=== PATIENT | male | born 1940 | race Caucasian/White ===

== ENCOUNTER → 2017-05-31 10:49 | Outpatient (CLI) | payer MEDICARE, OTHER, SELFPAY ==
--- NOTE | 2017-05-31 10:51 | ECHOD_ITS ---
Reason For Study: HTN Procedure This was a 2D Doppler, Color Flow transthoracic echocardiogram. Exam performed in department. Left Ventricle Normal LV size. Left ventricular systolic function is normal. The estimated ejection fraction is 55 %. No evidence for diastolic dysfunction. No regional wall motion abnormalities noted. Right Ventricle Normal RV size. Normal systolic function. Atria Normal left atrium. Normal right atrium. Mitral Valve Normal mitral valve. Tricuspid Valve Normal tricuspid valve. Mild (1+) tricuspid valve insufficiency. Pulmonary artery systolic pressure is 29 mmHg. Aortic Valve Trisinus/trileaflet aortic valve. Mild (1+) eccentric aortic valve insufficiency. Pulmonic Valve Normal pulmonic valve. Great Vessels Normal aortic root. The pulmonary artery is normal size. Normal inferior vena cava. Pericardium/Pleural No pericardial effusion. MMode/2D Measurements & Calculations LVIDd: 4.4 cm IVSd: 1.1 cm Ao root diam: 3.1 cm LVIDs: 2.9 cm LVPWd: 1.2 cm LA dimension: 4.0 cm FS: 33.5 % LAV(MOD-bp): 50.4 ml LA A4 area: 14.9 cm2 RA A4 area: 18.9 cm2 LAV(MOD-bp) Indexed: 26.1 ml/m2 LAV(MOD-sp2): 50.5 ml LAV(MOD-sp4): 39.2 ml Time Measurements MV dec time: 0.26 sec Doppler Measurements & Calculations MV E max chandrakant: 77.6 cm/sec Lat Peak E' Chandrakant: 8.3 cm/sec Med Peak E' Chandrakant: 7.5 cm/sec MV A max chandrakant: 96.0 cm/sec E/E' lat: 9.4 E/E' med: 10.4 MV E/A: 0.81 Ao V2 max: 152.2 cm/sec AI max chandrakant: 414.4 cm/sec LV V1 max: 113.7 cm/sec Ao max P.3 mmHg AI max P.7 mmHg LV V1 max P.2 mmHg AI dec slope: 163.7 cm/sec2 AI P1/2t: 741.3 msec PA V2 max: 110.8 cm/sec PI end-d chandrakant: 73.5 cm/sec TR max chandrakant: 245.1 cm/sec TR max P.0 mmHg Interpretation Summary Normal LV size. Left ventricular systolic function is normal. The estimated ejection fraction is 55 %. No evidence for diastolic dysfunction. Mild (1+) tricuspid valve insufficiency. Mild (1+) eccentric aortic valve insufficiency. Ordering Physician: Rodrick Jay Referring Physician: Darius Waddell Performed By: Karen Eckert, RDCS, RVT
== END ==
PROVIDERS: Family Provider Family Medicine; PCP Family Medicine; Visit Provider Internal Medicine Cardiovascular Disease
DX: I48.0 Paroxysmal atrial fibrillation (principal)
CPT/HCPCS: 93306

== ENCOUNTER → 2017-10-13 08:50 | Outpatient (CLI) | payer MEDICARE, OTHER, SELFPAY ==
--- NOTE | 2017-10-13 08:53 | VDLE_ITS ---
Reason For Study: LEG PAIN RIGHT LEFT CFV is compressible, spontaneous, phasic, GSV is normal. competent and demonstrates normal CFV is compressible, spontaneous, phasic, augmentation. competent, and demonstrates normal Procedure augmentation. Exam performed in department. FV is compressible, spontaneous, phasic, A preliminary report was called and/or faxed competent and demonstrates normal to Cam Petersen. augmentation. POP V is compressible, spontaneous, phasic, competent and demonstrates normal augmentation. T/P Trunk is compressible. PTV is compressible. LT PerV is compressible. Interpretation Summary Deep veins of the left lower extremity are patent and compressible segmentally. There is no evidence of left lower extremity deep vein thrombosis. Valvular competence appears intact within the proximal deep venous system on the left . The left greater saphenous vein appears patent and compressible segmentally. Ordering Physician: Shin Petersen Referring Physician: Darius Waddell Performed By: Wilam Ivan RVT
== END ==
PROVIDERS: Family Provider Family Medicine; PCP Family Medicine; Visit Provider Orthopaedic Surgery
DX: M79.605 Pain in left leg (principal)
CPT/HCPCS: 93971

== ENCOUNTER → 2018-07-05 09:44 | Outpatient (CLI) | payer MEDICARE, OTHER, SELFPAY ==
[2018-07-02 12:37] VITALS: BMI 27.0
== END ==
PROVIDERS: Family Provider Family Medicine; PCP Family Medicine; Referring Provider Internal Medicine Cardiovascular Disease; Visit Provider Internal Medicine Cardiovascular Disease
DX: R03.0 Elevated blood-pressure reading, without diagnosis of hypertension (principal)
CPT/HCPCS: 93788

== ENCOUNTER 2018-12-04 14:52 | Emergency (ER) | payer MEDICARE, OTHER, SELFPAY ==
[2018-07-02 12:37] VITALS: BMI 27.0
[2018-12-04 14:53] VITALS: BP 162/91; PULSE 59; RESP 16; TEMP 36.6; O2SAT 98; BMI 25.7
--- NOTE | 2018-12-04 15:48 | ED.VIS.GEN ---
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 Patient states he was trying to move up patient's when the wheelchair was locked and had a sudden lurching movement. He immediately had right groin pain. It does not radiate. He does not have any associated dysuria or testicular pain. The pain has slightly subsided but is still present. It seems to be better when he moves around. He denies any history of hernias. He has not taken any medication for the pain. The event marketing coordinator contact him today and was concerned that he was still having symptoms and they recommended he come to the emergency room to be evaluated further. Denies feeling any bulge in the area. He notes his symptoms are better when he wears a jockstrap. Past Medical History - Allergies and Home Meds Allergies/Adverse Reactions: Allergies No Known Allergies Allergy (Verified 12/04/18 14:52) Primary Care Physician: Darius Waddell MD [Primary Care Provider] - Past Medical History: - - Hypertension, hyperlipidemia, history of prostate cancer Surgical History: herniorrhaphy, - - History of prostate implants for prostate cancer Smoking Status: Former smoker Review of Systems All systems negative except as indicated Genitourinary: Reports: - - Right groin pain. Denies: Dysuria, Hematuria Physical Exam Vital Signs/Narrative: Vital Signs Temp Pulse Resp BP Pulse Ox 12/04/18 14:53 97.9 F 59 L 16 162/91 H 98 Inital Vital Signs reviewed: Yes General: Well nourished, Well developed, No Acute Distress Head: Normocephalic, Atraumatic Eyes: Perrl, EOMI ENT: Moist mucous membranes, No rhinorrhea Neck: Supple, Nontender Cardiovascular: Regular rate, Regular rhythm, No murmurs, - - 2+ bilateral femoral pulses Respiratory: No distress, CTA bilaterally, Chest nontender Abdomen: Soft, Nontender, Nondistended, Normal bowel sounds : - - Normal external genitalia, normal cremasteric reflexes bilaterally, normal testicular exam with no associated edema or tenderness, no bulge appreciated with coughing Back: Nontender, Normal Inspection Extremities: Nontender, No edema, - - Tenderness palpation of the right groin at the medial inguinal ligament, no associated mass or erythema Skin: Normal color, No rash Neurological: Alert, Oriented x3, Cranial nerves II-XII grossly intact, Normal Strength, Normal Sensation Psychological: Normal affect, Normal Mood Diagnostic/Tx/Re-eval - Medical Decision Making He was evaluated for 5 days of right groin pain. I suspect this is a strain. I do not appreciate any hernia. Not concerned for any incarcerated or strangulate it hernia. Patient is instructed to take Motrin as needed for pain control. He is encouraged to follow-up with his primary care provider later in the week if this is not improving. I do not suspect any acute testicular torsion. Patient is counseled on signs and symptoms requiring return to the emergency room. Patient verbalizes agreement and understand this plan. Patient discharged home in stable and improved condition. ED Disposition - Plan for ED Patient: Disposition: Home or Assisted Living Diagnosis: Strain of muscle of right groin region Instructions: Groin Strain Referrals: Darius Waddell MD [Primary Care Provider] - Ty Ruiz MD [STAFF PHYSICIAN] - As Needed Additional Instructions: Take 400 mg of ibuprofen up to 4 times a day as needed for pain. Avoid strenuous activity. Follow-up with your primary care provider if this is not improving. Return to the emergency room if your symptoms change or worsen.
== END 2018-12-04 16:03 | disposition home or self-care (01) ==
PROVIDERS: Emergency Provider Emergency Medicine; Family Provider Family Medicine; PCP Family Medicine
DX: S39.011A Strain of muscle, fascia and tendon of abdomen, initial encounter (principal); X50.9XXA Other and unspecified overexertion or strenuous movements or postures, initial encounter; Y93.89 Activity, other specified; Y92.239 Unspecified place in hospital as the place of occurrence of the external cause; Y99.2 Volunteer activity; I10 Essential (primary) hypertension; E78.5 Hyperlipidemia, unspecified; Z79.82 Long term (current) use of aspirin; Z79.899 Other long term (current) drug therapy; Z85.46 Personal history of malignant neoplasm of prostate; Z87.891 Personal history of nicotine dependence
CPT/HCPCS: 99282

== ENCOUNTER → 2019-03-25 14:01 | Outpatient (CLI) | payer MEDICARE, OTHER, SELFPAY ==
[2019-01-23 12:40] VITALS: BMI 27.2
[2019-03-25 16:01] LABS: Anion Gap 3 (5-15); BUN 21 mg/dL (7-18); BUN/Creat Ratio 18.1 RATIO (10-20); Calcium,Total 8.7 mg/dL (8.5-10.1); Chloride 102 mmol/L (98-107); Creatinine, Serum 1.16 mg/dL (0.70-1.30); EST Glomerular Filtration Rate 64 mL/min (>60); Est Glom Filt Rate - Afr Amer 78 mL/min (>60); Glucose 94 mg/dL (74-106); Potassium 3.8 mmol/L (3.5-5.1); Sodium Level 138 mmol/L (136-145)
== END ==
PROVIDERS: Family Provider Family Medicine; PCP Family Medicine; Referring Provider Physician Assistant Medical; Visit Provider Physician Assistant Medical
DX: I10 Essential (primary) hypertension (principal)
CPT/HCPCS: 36415; 80048

== ENCOUNTER → 2020-06-29 10:37 | Outpatient (CLI) | payer MEDICARE, SELFPAY ==
[2019-09-10 14:58] VITALS: BMI 26.3
[2020-06-29 12:22] LABS: Absolute Lymphocyte Count 2.73 X10^3/uL (0.83-4.51); Absolute Neutrophil Count 5.4 X10^3/uL (2.0-7.7); Basophil# 0.07 X10^3/uL; Basophil% 0.8 % (0-1); Eosinophil# 0.18 X10^3/uL; Lymphocyte # 2.73 X10^3/ul (4.0); Lymphocyte % 29.8 % (19-41); Mean Corp Hgb Conc 32.6 g/dL (32-36); Mean Corpuscular Hgb 30.6 pg (27.0-32.0); Mean Corpuscular Volume 93.9 fL (80-94); Monocyte# 0.79 X10^3/uL; Monocyte% 8.6 % (0-10); NRBC Flagged by Analyzer 0 % (0-5); Neutrophil # 5.35 X10^3/uL (2.7-7.7); Neutrophil % 58.4 % (47-70); Platelet Count 339 K/mm3 (150-450); RBC Distribution Width CV 12.5 % (11.6-14.6); RBC Distribution Width SD 42.9 fl (35.1-43.9); Red Blood Count 4.58 M/mm3 (4.6-6.2); White Blood Count 9.2 K/mm3 (4.4-11.0)
[2020-06-29 12:35] LABS: Microalbumin:Creatinine Ratio 4.4 mg/g CRE (<30 mg/g CRE)
[2020-06-29 12:52] LABS: AST(SGOT) 22 U/L (15-37); Alanine Aminotransfer ALT/SGPT 32 U/L (16-61); Albumin, Serum 3.9 g/dL (3.2-5.0); Alkaline Phosphatase 67 U/L (45-117); Anion Gap 5 (5-15); BUN 22 mg/dL (7-18); BUN/Creat Ratio 20.8 RATIO (10-20); Chloride 99 mmol/L (98-107); Cholesterol 112 mg/dL (200); Creatinine, Serum 1.06 mg/dL (0.70-1.30); EST Glomerular Filtration Rate 71 mL/min (>60); Est Glom Filt Rate - Afr Amer 86 mL/min (>60); Globulin 3.9 g/dL (2.2-4.2); Glucose 104 mg/dL (74-106); High Density Lipoprotein 50 mg/dL; Potassium 4.1 mmol/L (3.5-5.1); Protein, Total 7.8 g/dL (6.4-8.2); Sodium Level 136 mmol/L (136-145)
[2020-06-30 09:51] LABS: PSA,Total- Diagnostic < 0.01 ng/mL (0.0-4.0)
== END ==
PROVIDERS: PCP Family Medicine; Visit Provider Family Medicine
DX: C61 Malignant neoplasm of prostate (principal); I10 Essential (primary) hypertension
CPT/HCPCS: 36415; 80053; 82043; 82465; 82570; 83718; 84153; 85025; G0103

== ENCOUNTER 2021-12-15 14:04 | Inpatient (IN) | payer MEDICARE, SELFPAY ==
[2021-12-15] VITALS (12 sets, daily range): BP systolic 81–125; BP diastolic 51–88; PULSE 68–144; RESP 15–23; TEMP 36.4–36.6; O2SAT 96–99; BMI 25.9; BMI 27.1
--- NOTE | 2021-12-15 14:43 | ED.VIS.CHEST ---
HPI History of Present Illness Chief Complaint: Chest Pain Informant: patient Narrative Narrative: Patient is an 81-year-old male with history of hypertension, hyperlipidemia and proximal atrial fibrillation presenting with chest discomfort lightheadedness and mild shortness of breath that started at 5 AM this morning. He noticed it when he woke up this morning. He describes as a chest pressure that radiates to his left shoulder. He had a similar episode 10 years ago and at that time he was in atrial fibrillation with RVR. At that time he states he was transferred to [facility]. He is on an 81 mg daily aspirin and is not on any blood thinner. He states he was feeling well yesterday. Did take his aspirin today. 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 No other complaints at this time. Denies any swelling of his legs. Denies a history of DVT or PE. [facility] Medical History (Updated 12/15/21 @ 23:[address] Soraida Schaffer, DO) Benign neoplasm of rectum and anal canal Erectile dysfunction Essential (primary) hypertension Former tobacco use Hyperlipidemia Paroxysmal atrial fibrillation Prostate cancer Home Medications aspirin 81 mg chewable tablet 81 mg PO DAILY@0800 06/17/13 [History Last Taken 06/17/13 08:00] atorvastatin 10 mg tablet 10 mg PO QHS 06/17/13 [History Last Taken 06/16/13] multivitamin,[id number] (Complete Multivitamin tablet) 1 tab PO QDAY 05/10/17 [History Last Taken Unknown] magnesium oxide 400 mg PO DAILY 09/10/19 [History Last Taken Unknown] amlodipine 10 mg tablet 10 mg PO DAILY #90 tabs 08/06/21 [Rx Last Taken Unknown] hydrochlorothiazide 25 mg tablet 25 mg PO DAILY #90 tabs 08/06/21 [Rx Last Taken Unknown] losartan 100 mg tablet (Cozaar) 100 mg PO QDAY #90 tabs 10/08/21 [Rx Last Taken Unknown] metoprolol succinate 100 mg tablet,extended release 24 hr (Toprol XL) 100 mg PO DAILY #90 tabs 10/19/21 [Rx Last Taken Unknown] Allergy/AdvReac Type Severity Reaction Status Date / Time No Known Allergies Allergy Verified 12/15/21 14:05 Family History Mother Hypertension Father CKD (chronic kidney disease) Prostate cancer Surgical History History of colonoscopy with polypectomy History of left heart catheterization (07/2012) History of prostate surgery History of right inguinal hernia repair S/P excision of lipoma Social History household members: spouse Smoking Status: Former smoker quit date: 03/27/94 pack-years: 20 how long ago did patient quit smoking: Quit 03/27/1994, smoked while in [employer], 03/28 ppd x 20 years. alcohol intake: current alcohol intake frequency: a few times a week Alcohol type: wine details: Occasional. substance use type: does not use ROS ROS ED Constitutional Constitutional ED: Denies chills or fever(s) Eyes Eyes: Denies blurry vision or change in vision ENT ENT ED: Denies sore throat Cardiovascular Cardiovascular: Reports as per HPI, chest pain and palpitations Respiratory/Chest Respiratory/Chest: Reports dyspnea; Denies cough Gastrointestinal Gastrointestinal: Denies nausea or vomiting Musculoskeletal Musculoskeletal: Denies arthralgias or myalgias Integumentary Denies rash Neurologic Neurologic: Denies headache(s) or weakness Psychiatric Psychiatric: Denies anxiety Hematologic/Lymphatic Hematologic/Lymphatic: Denies easy bleeding or easy bruising EXAM Physical Exam Const Vital Signs: 12/15/21 14:05 12/15/21 14:11 12/15/21 14:58 Temperature 97.6 F L Temperature Source Temporal Pulse Rate 143 H 144 H Respiratory Rate 18 Blood Pressure 115/78 Blood Pressure Mean 90 Pulse Ox 97 97 Oxygen Delivery Method Room Air Room Air 12/15/21 15:09 12/15/21 15:54 12/15/21 17:00 Temperature Temperature Source Pulse Rate 132 H 104 H 75 Respiratory Rate 15 18 18 Blood Pressure 81/53 L 102/60 120/88 H Blood Pressure Mean 62 74 98 Pulse Ox 96 96 96 Oxygen Delivery Method Room Air Room Air Room Air 12/15/21 19:00 Temperature Temperature Source Pulse Rate 80 Respiratory Rate 16 Blood Pressure 114/74 Blood Pressure Mean 87 Pulse Ox 97 Oxygen Delivery Method Room Air Positive well nourished and well developed General Appearance ED: well developed and NAD HEENT Reports moist mucous membranes normocephalic and atraumatic Eyes PERRL and EOMs intact bilaterally Neck supple and no JVD Chest Wall inspection of chest normal Resp normal respiratory effort and clear to auscultation bilaterally Auscultation: Negative for rales, rhonchi or wheezes Cardio no murmurs Rate: tachycardic Rhythm: abnormal rhythm irregularly irregular GI normal to inspection, nondistended, normoactive bowel sounds and soft to palpation Extremity normal to inspection Neuro oriented x3 Sensorium / Orientation: awake and alert Motor Exam: Negative for general weakness Psych mental status grossly normal Skin no rashes or lesions noted and no wounds Heart Score History: Moderately Suspicious ECG: Significant ST-Depression Age: >/= 65 years Risk Factors: 1 or 2 Risk Factors Troponin: >/=3 x Normal Limit Score: 8 MDM MDM MDM Narrative Medical decision making narrative: Patient is evaluated for chest pressure and lightheadedness. Patient arrives and is in atrial fibrillation with RVR. Initial high-sensitivity troponin is 16 however patient does have ischemic changes on his EKG. I suspect it is more rate related. Initially he is given 5 mg of IV metoprolol however he does not have significant improvement of his rates and has associated hypotension. He was bolused IV fluids and then we attempted 10 mg IV bolus of Cardizem. Patient very good response to this with good rate control and improvement of his blood pressure. Repeat high sensitive troponin came back elevated at 46. Discussed the case with cardiology on-call, Dr. Harrison, who is agreeable with checking 1 more troponin in the ER. If downtrending can discharge home and start patient on Eliquis with an increase in his metoprolol however if uptrending likely will require admission. Third high-sensitivity troponin is more significantly elevated 178. Patient currently is asymptomatic and repeat EKG does not show ischemic changes. He continues to be in atrial fibrillation. Patient be admitted to the hospital service, started on a heparin drip and have further cardiac evaluation. He is agreeable to this plan of care. Lab Data Attestation: I reviewed the patient's lab results. Labs: Laboratory Results - last 24 hr 12/15/21 12/15/21 12/15/21 14:40 14:40 14:40 WBC 11.8 H RBC 4.43 L Hgb 13.3 Hct 40.1 MCV 90.5 MCH 30.0 MCHC 33.2 RDW Std Deviation 41.6 RDW Coeff of Leanne 12.6 Plt Count 336 MPV 10.2 Immature Gran % (Auto) 0.500 Neut % (Auto) 77.0 H Lymph % (Auto) 15.1 L Sharp % (Auto) 6.5 Eos % (Auto) 0.5 Baso % (Auto) 0.4 Absolute Neuts (auto) 9.1 H Absolute Lymphs (auto) 1.78 Nucleated RBC % 0 PT INR D-Dimer Quant (PE/DVT) Sodium 133 L Potassium 3.9 Chloride 96 L Carbon Dioxide 26.0 Anion Gap 11 BUN 18 Creatinine 1.14 Estim Creat Clear Calc 47.50 Est GFR (MDRD) Af Amer 79 Est GFR (MDRD) Non-Af 65 BUN/Creatinine Ratio 15.8 Glucose 147 H Calcium 9.2 Magnesium 2.1 Troponin I High Sens 16 B-Natriuretic Peptide 586.2 H TSH 1.65 12/15/21 12/15/21 12/15/21 14:40 16:40 18:41 WBC RBC Hgb Hct MCV MCH MCHC RDW Std Deviation RDW Coeff of Leanne Plt Count MPV Immature Gran % (Auto) Neut % (Auto) Lymph % (Auto) Sharp % (Auto) Eos % (Auto) Baso % (Auto) Absolute Neuts (auto) Absolute Lymphs (auto) Nucleated RBC % PT 14.0 INR 1.1 D-Dimer Quant (PE/DVT) 0.47 Sodium Potassium Chloride Carbon Dioxide Anion Gap BUN Creatinine Estim Creat Clear Calc Est GFR (MDRD) Af Amer Est GFR (MDRD) Non-Af BUN/Creatinine Ratio Glucose Calcium Magnesium Troponin I High Sens 46 178 H* B-Natriuretic Peptide TSH 12/15/21 18:41 WBC RBC Hgb Hct MCV MCH MCHC RDW Std Deviation RDW Coeff of Leanne Plt Count MPV Immature Gran % (Auto) Neut % (Auto) Lymph % (Auto) Sharp % (Auto) Eos % (Auto) Baso % (Auto) Absolute Neuts (auto) Absolute Lymphs (auto) Nucleated RBC % PT INR D-Dimer Quant (PE/DVT) Sodium Potassium Chloride Carbon Dioxide Anion Gap BUN Creatinine Estim Creat Clear Calc Est GFR (MDRD) Af Amer Est GFR (MDRD) Non-Af BUN/Creatinine Ratio Glucose Calcium Magnesium 2.2 Troponin I High Sens B-Natriuretic Peptide TSH Radiography Chest X-Ray - ED: 1 View, Read by ED Physician, Read by Radiologist and No Acute Disease Diagnostic Testing: Clinical Impression(s) from Imaging Studies Chest X-Ray 12/15/21 15:05 IMPRESSION: No radiographic evidence of acute cardiopulmonary disease. Electronically Signed: Von Toledo MD at 15:25 EDT Reading Location ID and State: [facility] [place] Tel , Service support , Rhythm Strip Rhythm Strip: A-fib Rate: 137 Ectopy: None EKG Initial EKG: Interpretation: Atrial Fibrillation Comments: Atrial fibrillation with RVR at a rate of 137 Left axis deviation Minimal voltage criteria for LVH ST depressions in lateral leads with no significant corresponding elevations, suspect rate related strain Follow-up EKG: Attestation: I personally reviewed and interpreted this EKG as follows: Interpretation: Atrial Fibrillation Comments: Atrial fibrillation at a rate of 72 Left axis deviation Normal QRS and QTc Normal ST segments Critical Care Time Critical Care Time: Yes Critical care time (excluding procedures): 30-74 minutes (45), Discussing w/Patient &/or Family/Adjunct Instructor Chemistry, Discussing w/Consultants, Arranging Admission or Transfer and Performing Direct Patient Care at Bedside Discharge Plan Dx/Rx/DC Orders Clinical Impression: NSTEMI, initial episode of care, Atrial fibrillation with RVR, Essential (primary) hypertension Disposition Disposition: Acute Care Hospital [facility] Discharge Date/Time: 12/15/21 20:51
[2021-12-15] MEDS: Aspirin 81 MG TAB.CHEW 162 MG PO (14:54)
[2021-12-15] MEDS: Metoprolol Tartrate 5 MG/5 ML Vial IV (14:54)
[2021-12-15 14:57] LABS: Absolute Lymphocyte Count 1.78 X10^3/uL (0.83-4.51); Absolute Neutrophil Count 9.1 X10^3/uL (2.0-7.7); Basophil# 0.05 X10^3/uL; Basophil% 0.4 % (0-1); Eosinophil# 0.06 X10^3/uL; Eosinophils% 0.5 % (0-5); Hematocrit 40.1 % (40-54); Hemoglobin 13.3 g/dL (13.0-16.5); Lymphocyte # 1.78 X10^3/ul (0.83-4.51); Lymphocyte % 15.1 % (19-41); Mean Corp Hgb Conc 33.2 g/dL (32-36); Mean Corpuscular Volume 90.5 fL (80-94); Mean Platelet Vol. 10.2 fl (6.2-12.0); Monocyte# 0.77 X10^3/uL; Monocyte% 6.5 % (0-10); NRBC Flagged by Analyzer 0 % (0-5); Neutrophil # 9.06 X10^3/uL (2.7-7.7); Platelet Count 336 K/mm3 (150-450); RBC Distribution Width CV 12.6 % (11.6-14.6); RBC Distribution Width SD 41.6 fl (35.1-43.9); Red Blood Count 4.43 M/mm3 (4.6-6.2); White Blood Count 11.8 K/mm3 (4.4-11.0)
[2021-12-15 15:04] LABS: International Normalized Ratio 1.1
--- NOTE | 2021-12-15 15:05 | RAD_ITS ---
INDICATION: chest pain EXAMINATION/TECHNIQUE: X-RAY - XR Chest 1 View COMPARISON: 06/17/2013. FINDINGS: LINES/DEVICES: None. LUNGS: Biapical pleural reaction is visualized and demonstrates no change in comparison to the prior study. Peribronchial cuffing is seen that demonstrates no change. The bronchovascular markings otherwise unremarkable demonstrating no evidence of focal infiltrate or consolidation. No evidence of airspace opacification is seen. The costophrenic angles are clear no evidence of pleural fluid is seen. No evidence of pneumothorax or parenchymal lung mass. MEDIASTINUM AND CARDIOVASCULAR STRUCTURES: Cardiac silhouette not enlarged. BONES AND SOFT TISSUES: Unremarkable. RAD/Chest 1 View (Portable) IMPRESSION: No radiographic evidence of acute cardiopulmonary disease. Electronically Signed: Von Toledo MD at 15:25 EDT ,
[2021-12-15 15:10] LABS: Anion Gap 11 (5-15); BUN 18 mg/dL (7-18); BUN/Creat Ratio 15.8 RATIO (10-20); Calcium,Total 9.2 mg/dL (8.5-10.1); Chloride 96 mmol/L (98-107); Creatinine, Serum 1.14 mg/dL (0.70-1.30); EST Glomerular Filtration Rate 65 mL/min (>60); Est Glom Filt Rate - Afr Amer 79 mL/min (>60); Glucose 147 mg/dL (74-106); Magnesium 2.1 mg/dL (1.6-2.6); Potassium 3.9 mmol/L (3.5-5.1); Sodium Level 133 mmol/L (136-145); Thyroid Stim Hormone (TSH) 1.65 uIU/mL (0.358-3.74); Troponin-I HS (w/2H Reflex) 16 pg/mL (3.0-78.0)
[2021-12-15 15:14] LABS: BNP,B-Type NATRIURETIC PEPTIDE 586.2 pg/mL (0-100)
[2021-12-15 15:19] LABS: D-Dimer Quantitative (DVT/PE) 0.47 FEU/ug/m (0.27-0.49)
[2021-12-15] MEDS: 0.9% Normal Saline 1,000 ML 999 ML IV (15:46)
[2021-12-15] MEDS: dilTIAZem 25 MG/5 ML Vial 10 MG IV BOLUS (15:47)
[2021-12-15 16:43] LABS: Reflex Troponin-HS? (from REC) Y
[2021-12-15 17:11] LABS: Troponin-I HS 46 pg/mL (3.0-78.0)
[2021-12-15 19:17] LABS: Troponin-I HS 178 pg/mL (3.0-78.0)
--- NOTE | 2021-12-15 19:55 | PCM.HP.STD ---
HPI - General General Date of Admission: 12/15/21 Date of Service: 12/15/21 Chief Complaint: Chest pain, lightheadedness, dyspnea. HPI Narrative The patient is an 81 y/o F w/ PMHx: Hx Prostate CA s/p seed placement, HTN, HLD, PAF, Hx benign rectal/anal cancer s/p polypectomy, Former tobacco use who presents to the [facility] ED on 12/15/21 with history of onset of chest discomfort, lightheadedness, dizziness with associated dyspnea which started at ~ 5 am on day of ED presentation upon awakening which he described as a pressure with radiation to the L shoulder with similar years prior at which point he was noted to be in atrial fibrillation with RVR at that time prompting ED evaluation. He notes feeling well and at his baseline the day prior without issue. He notes that when he had discomfort his discomfort was rated 7-8 out of 10 in severity and continued through the day until he arrived at the ED and notes improvement when he was initially started to be administered regimen to control his heart rate. He currently states he remains chest pain-free. Work-up in the ED included T97.6, heart rate initially 143 with improvement 80, BP 115/78 decreasing following medication administration to 81/53 with improvement with most recent BP 114/74, respiratory rate 18, 97% on room air, CBC with WC 11.8, hemoglobin 13.3, platelet 336 with left shift, unremarkable coags, D-dimer normal, BMP with sodium 133, chloride 96, glucose 147, BNP 586.2, TSH 1.65, initial troponin 46 with repeat delta 178, EKG with atrial fibrillation with RVR with ST depressions in lateral leads with no corresponding elevations. In the ED patient ministered normal saline bolus, aspirin full-strength and diltiazem 10 mg IV bolus x1 as well as lopressor 5 mg IV x 1. Discussed case with ED physician and will have patient placed on heparin drip as well as administration of his home 50 mg metoprolol. From review of records patient with most recent cardiology evaluation 12/11/2020 w/ Dr. Jay. 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 Harrison who agreed with current plan of care. [facility] Medical History (Updated 12/15/21 @ 20:[address] Jessica Celaya MD) Benign neoplasm of rectum and anal canal Erectile dysfunction Essential (primary) hypertension Former tobacco use Hyperlipidemia Paroxysmal atrial fibrillation Prostate cancer Home Medications aspirin 81 mg chewable tablet 81 mg PO DAILY@0800 06/17/13 [History Last Taken 06/17/13 08:00] atorvastatin 10 mg tablet 10 mg PO QHS 06/17/13 [History Last Taken 06/16/13] multivitamin,[id number] (Complete Multivitamin tablet) 1 tab PO QDAY 05/10/17 [History Last Taken Unknown] magnesium oxide 400 mg PO DAILY 09/10/19 [History Last Taken Unknown] amlodipine 10 mg tablet 10 mg PO DAILY #90 tabs 08/06/21 [Rx Last Taken Unknown] hydrochlorothiazide 25 mg tablet 25 mg PO DAILY #90 tabs 08/06/21 [Rx Last Taken Unknown] losartan 100 mg tablet (Cozaar) 100 mg PO QDAY #90 tabs 10/08/21 [Rx Last Taken Unknown] metoprolol succinate 100 mg tablet,extended release 24 hr (Toprol XL) 100 mg PO DAILY #90 tabs 10/19/21 [Rx Last Taken Unknown] Allergy/AdvReac Type Severity Reaction Status Date / Time No Known Allergies Allergy Verified 12/15/21 14:05 Family History (Updated 12/15/21 @ 20:[address] Jessica Celaya MD) Mother Hypertension Father CKD (chronic kidney disease) Prostate cancer Surgical History (Updated 12/15/21 @ 20:[address] Jessica Celaya MD) History of colonoscopy with polypectomy History of left heart catheterization (07/2012) History of prostate surgery History of right inguinal hernia repair S/P excision of lipoma Social History (Updated 12/15/21 @ 20:[address] Jessica Celaya MD) household members: spouse Smoking Status: Former smoker quit date: 03/27/94 pack-years: 20 how long ago did patient quit smoking: Quit 03/27/1994, smoked while in [place], 1/ ppd x 20 years. alcohol intake: current alcohol intake frequency: a few times a week Alcohol type: wine details: Occasional. substance use type: does not use ROS ROS Narrative Admission Review of Systems: CONSTITUTIONAL: No weight loss, fever, chills, + weakness or fatigue. HEENT: Eyes: No visual loss, blurred vision, double vision or yellow sclerae. Ears, Nose, Throat: No hearing loss, sneezing, congestion, runny nose or sore throat. SKIN: No rash or itching, lesions, wounds. CARDIOVASCULAR: + chest pain, chest pressure or chest discomfort, palpitations, lightheadedness/dizziness, No edema, orthopnea, syncopal events. RESPIRATORY: + shortness of breath, No cough or sputum, wheezing, hemoptysis. GASTROINTESTINAL: No anorexia, nausea, vomiting or diarrhea, abdominal pain, melena, BRBPR. GENITOURINARY: No dysuria, frequency, urgency or retention. NEUROLOGICAL: + LH/Dizziness, No headache, syncope, paralysis, ataxia, numbness or tingling in the extremities, focal weakness, change in bowel or bladder control, seizure. MUSCULOSKELETAL: + muscle, back pain, joint pain or stiffness. HEMATOLOGIC: No anemia, bleeding or bruising. LYMPHATICS: No enlarged nodes. No history of splenectomy. PSYCHIATRIC: No history of depression or anxiety. ENDOCRINOLOGIC: No reports of sweating, cold or heat intolerance. No polyuria or polydipsia. ALLERGIES: No history of asthma, hives, eczema or rhinitis. Vital Signs Vital Signs Vital Signs: 12/15/21 14:05 12/15/21 14:11 12/15/21 14:58 Temperature 97.6 F L Temperature Source Temporal Pulse Rate 143 H 144 H Respiratory Rate 18 Blood Pressure 115/78 Blood Pressure Mean 90 Pulse Ox 97 97 Oxygen Delivery Method Room Air Room Air 12/15/21 15:09 12/15/21 15:54 12/15/21 17:00 Temperature Temperature Source Pulse Rate 132 H 104 H 75 Respiratory Rate 15 18 18 Blood Pressure 81/53 L 102/60 120/88 H Blood Pressure Mean 62 74 98 Pulse Ox 96 96 96 Oxygen Delivery Method Room Air Room Air Room Air 12/15/21 19:00 Temperature Temperature Source Pulse Rate 80 Respiratory Rate 16 Blood Pressure 114/74 Blood Pressure Mean 87 Pulse Ox 97 Oxygen Delivery Method Room Air Weight Weight: 171 lb Body Mass Index (BMI) 25.9 Physical Exam Narrative Physical Examination: General: Awake, alert, oriented x 3 and cooperative, seated upright in the ED, notes chest pain has completely resolved. Skin: Normal color, normal turgor, no icterus, no cyanosis except occasional staged ecchymoses to the extremity. HEENT: AT/NC, EOMI, PERRLA, MMM, no carotid bruits or JVD noted. Lungs: Mildly diminished, greater bases, poor effort no rales, ronchi or wheezing. Heart: Irregular, rate controlled; no gallop, rub audible. Abdomen: Soft, NTTP, ND, mildly hyperactive BS, no HSM. Extremities: No cyanosis, clubbing, or edema. Neurological: Patient awake, alert, oriented as noted, cognitive function intact; pupils equally reactive to light and accommodation, cranial nerves II-XII grossly normal, moving all 4 extremities, no focal deficits, strength improved, mildly global decrease secondary to acute presentation. Psychiatric: Affect appears normal, no acute evidence of depressive or anxiety feelings. Results Lab / Micro Data Result Diagrams: 12/15/21 14:40 12/15/21 14:40 Labs: Laboratory Results - last 24 hr 12/15/21 14:40: WBC 11.8 H, RBC 4.43 L, Hgb 13.3, Hct 40.1, MCV 90.5, MCH 30.0, MCHC 33.2, RDW Std Deviation 41.6, RDW Coeff of Leanne 12.6, Plt Count 336, MPV 10.2, Immature Gran % (Auto) 0.500, Neut % (Auto) 77.0 H, Lymph % (Auto) 15.1 L, [place]y % (Auto) 6.5, Eos % (Auto) 0.5, Baso % (Auto) 0.4, Absolute Neuts (auto) 9.1 H, Absolute Lymphs (auto) 1.78, Nucleated RBC % 0 12/15/21 14:40: Sodium 133 L, Potassium 3.9, Chloride 96 L, Carbon Dioxide 26.0, Anion Gap 11, BUN 18, Creatinine 1.14, Estim Creat Clear Calc 47.50, Est GFR (MDRD) Af Amer 79, Est GFR (MDRD) Non-Af 65, BUN/Creatinine Ratio 15.8, Glucose 147 H, Calcium 9.2, Magnesium 2.1, Troponin I High Sens 16, TSH 1.65 12/15/21 14:40: B-Natriuretic Peptide 586.2 H 12/15/21 14:40: PT 14.0, INR 1.1, D-Dimer Quant (PE/DVT) 0.47 12/15/21 16:40: Troponin I High Sens 46 12/15/21 18:41: Troponin I High Sens 178 H* Rhythm Strip Rhythm Strip: A-fib Rate: 137 Ectopy: None Radiology Impression Chest X-Ray 12/15/21 15:05 IMPRESSION: No radiographic evidence of acute cardiopulmonary disease. Electronically Signed: Von Toledo MD at 15:25 EDT Reading Location ID and State: [facility] / [place] Tel , Service support , Assessment & Plan Assessment/Plan (1) Atrial fibrillation with RVR: (2) NSTEMI, initial episode of care: PLAN: Plan The patient is an 81 y/o F w/ PMHx: Hx Prostate CA s/p seed placement, HTN, HLD, PAF, Hx benign rectal/anal cancer s/p polypectomy, Former tobacco use who presents to the [facility] ED on 12/15/21 with history of onset of chest discomfort, lightheadedness, dizziness with associated dyspnea which started at ~ 5 am on day of ED presentation upon awakening which he described as a pressure with radiation to the L shoulder with similar years prior at which point he was noted to be in atrial fibrillation with RVR at that time prompting ED evaluation. #1. Paroxsymal atrial fibrillation w/ RVR with associated NSTEMI, Type II Demand suspected: EKG in ED w/ atrial fibrillation w/ RVR. Patient administered Cardizem 10 mg IV bolus x1 in ED. Will admit to PCU, maintain on telemetry, obtain cardiac enzyme serial set, obtain magnesium level, obtain ECHO, TSH level normal, CHADs scoring appropriate for anticoagulation except given presentation with NSTEMI will place on heparin drip in case of cardiac catheterization decision. Echocardiogram requested. Given now rate control we will continue current regimen and attempt overlap with metoprolol regimen x1 now pending cardiology assessment. FLP in AM. Last stress testing noted in [employer] 2013. Cardiology consulted, pending. #2. Hypertension: Continue home regimen including metoprolol, losartan, hydrochlorothiazide, amlodipine with hold parameters as needed, PRN hydralazine. #3. Hyperlipidemia: Continue home statin regimen. AM FLP. #4. History of prostate cancer: History of seed placement, considered in remission. #5. History benign rectal/anal cancer: s/p colonoscopy with polypectomy, benign, encourage continued outpatient appropriate follow-up. #6. Former tobacco use: Encourage continued tobacco cessation. #7. DVT prophylaxis: SCDs, heparin drip initiated as noted. #8. CODE status: Patient JORGE is his and living will is currently in place. Discussed CODE status at length including difference between FULL code, DNR-CCA and DNR-CC status. Following discussions about the differences in these status, requested Full Code status. Advanced Care Planning Face to Face Time: 16 minutes. Charges/Coding Visit Charges Inpatient E&M: 49080 Init Hosp L3 Procedures Hospitalists Procedures: 63417 Advncd Care Plan 30 Min
[2021-12-15] MEDS: Metoprolol(XL)Succ 50 MG Tablet PO (20:17)
[2021-12-15 20:40] LABS: Partial Thromboplast Time 32.8 Seconds (24.1-36.2)
[2021-12-15] MEDS: Heparin Injection (Vial) 5,000 UNIT/ML VIAL 5000 UNIT IV (20:48)
[2021-12-15] MEDS: HEPARIN/D5w 25,000 UNITS 25,000 UNITS/250 ML IV.SOLN. 11 UNITS CONT INF ×2 (20:48→21:05)
[2021-12-15 21:04] LABS: Magnesium 2.2 mg/dL (1.6-2.6)
[2021-12-15] MEDS: Atorvastatin Calcium 10 MG Tablet PO (22:16)
[2021-12-15] MEDS: 0.9% Normal Saline 1,000 ML 75 ML IV (22:27)
[2021-12-15 23:59] LABS: Troponin-I HS 464 pg/mL (3.0-78.0)
[2021-12-16] VITALS (19 sets, daily range): BP systolic 116–151; BP diastolic 43–85; PULSE 47–97; RESP 16–18; TEMP 36.5–37.1; O2SAT 96–99
[2021-12-16 03:23] LABS: Absolute Lymphocyte Count 3.56 X10^3/uL (0.83-4.51); Basophil# 0.06 X10^3/uL; Basophil% 0.6 % (0-1); Eosinophil# 0.17 X10^3/uL; Eosinophils% 1.6 % (0-5); Hematocrit 35.1 % (40-54); Hemoglobin 11.8 g/dL (13.0-16.5); Lymphocyte # 3.56 X10^3/ul (0.83-4.51); Lymphocyte % 32.8 % (19-41); Mean Corp Hgb Conc 33.6 g/dL (32-36); Mean Corpuscular Hgb 30.2 pg (27.0-32.0); Mean Corpuscular Volume 89.8 fL (80-94); Mean Platelet Vol. 9.5 fl (6.2-12.0); Monocyte% 9.2 % (0-10); NRBC Flagged by Analyzer 0 % (0-5); Neutrophil # 6.02 X10^3/uL (2.7-7.7); Neutrophil % 55.3 % (47-70); Platelet Count 278 K/mm3 (150-450); RBC Distribution Width CV 12.8 % (11.6-14.6); RBC Distribution Width SD 41.8 fl (35.1-43.9); Red Blood Count 3.91 M/mm3 (4.6-6.2); White Blood Count 10.9 K/mm3 (4.4-11.0)
[2021-12-16 03:34] LABS: Partial Thromboplast Time 154.3 Seconds (24.1-36.2)
[2021-12-16 04:10] LABS: ALB/GLOB Ratio 0.9 RATIO (0.9-2.4); AST(SGOT) 17 U/L (15-37); Alanine Aminotransfer ALT/SGPT 21 U/L (16-61); Albumin, Serum 2.9 g/dL (3.2-5.0); Alkaline Phosphatase 56 U/L (45-117); Anion Gap 8 (5-15); BUN 16 mg/dL (7-18); Calcium,Total 8.2 mg/dL (8.5-10.1); Chloride 101 mmol/L (98-107); Cholesterol 84 mg/dL (200); Creatinine, Serum 0.84 mg/dL (0.70-1.30); EST Glomerular Filtration Rate 92 mL/min (>60); Est Glom Filt Rate - Afr Amer 112 mL/min (>60); Estimated Creatinine Clearance 64.46 ml/min; Globulin 3.2 g/dL (2.2-4.2); Glucose 88 mg/dL (74-106); High Density Lipoprotein 46 mg/dL; Potassium 3.3 mmol/L (3.5-5.1); Protein, Total 6.1 g/dL (6.4-8.2); Sodium Level 135 mmol/L (136-145); Triglycerides 44 mg/dL; Very Low Density Lipoprotein 9 mg/dL (5-40)
[2021-12-16 04:33] LABS: Partial Thromboplast Time 155.8 Seconds (24.1-36.2)
--- NOTE | 2021-12-16 08:06 | CON.PCM.CA_ITS ---
Assessment & Plan Assessment/Plan (1) NSTEMI, initial episode of care: PLAN: At the present time the patient presents with symptoms and objective findings concerning for an acute non-ST segment elevation SD. Is unclear at the moment whether this is a true type I event versus a type II event brought out by his atrial dysrhythmia. At the present time he is back in sinus rhythm. He will continue to be monitored. His medicines will be adjusted accordingly. He has been recommended for further evaluation with diagnostic cardiac cath eterization. The procedure and risk were discussed with him and he was agreeable to this approach. (2) Atrial fibrillation with RVR: PLAN: The patient has had recurrent atrial fibrillation. He is currently back in sinus rhythm. He will continue medical therapy as deemed appropriate which over time include rate control therapy, antiarrhythmic therapy, and anticoagulant therapy. (3) Hyperlipidemia: QUALIFIERS: Hyperlipidemia type: pure hypercholesterolemia Qualified Code(s): E78.00 - Pure hypercholesterolemia, unspecified; E78.0 - Pure hypercholesterolemia PLAN: The patient has a history of hyperlipidemia. He will continue medical management. (4) Essential (primary) hypertension: PLAN: The patient's blood pressure will be followed and he will continue medical therapy as needed. Addt'l Comments The patient's case has been discussed and reviewed with the patient, Dr. Schaffer of the [facility] emergency department staff, Dr. 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 Jay. This note was generated using a voice recognition system and there may be incorrect words, spelling or punctuation that were not noted when reviewing the office note prior to saving. HPI Consult Data Date of Consult: 12/16/21 HPI Narrative HPI Narrative: MATILDA BROOKE, is a 81 year old white male who presents for consultation based upon concerns of atrial fibrillation, chest discomfort, and abnormal cardiac enzymes compatible with an acute non-ST segment elevation SD superimposed upon a history of hyperlipidemia and hypertension. 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 He was escorted to the [facility] emergency department for further evaluation. There he was found to be in atrial fibrillation. As part of his evaluation he stated that he did feel somewhat lightheaded. He states he asked his to check if he had a fever. She noted he felt somewhat clammy. Those symptoms coupled with his other symptoms led him to his out patient visit and subsequent emergency department visit. In the emergency department he was noted to have atrial fibrillation. He had a elevated ventricular rate. His ECG demonstrated atrial fibrillation. He was noted to have a report of a lower blood pressure. He was treated with IV metoprolol. He also received IV fluids. He subsequently received IV diltiazem. His heart rate slowed. His initial cardiac enzyme was negative. A subsequent enzyme did demonstrate an increase but still within the negative range. The patient was reported is requesting release home for continued outpatient follow- up. It was elected to reevaluate the patient with additional cardiac enzymes. As his cardiac enzymes were noted to continue an upward trend the recommendation was made for the patient to remain in the hospital which she was subsequently agreeable to. He was subsequently transferred to the PCU for further inpatient evaluation and care. Since being in the PCU he states overall he has felt better although he still senses a presence in his lower sternal area. He has not had any other symptoms. He has denied orthopnea or PND or peripheral pitting edema. He has denied any near-syncope or syncope. He states he has undergone cardiovascular evaluation in the past. This included a diagnostic cardiac catheterization performed at [facility] on 08-23-2012. At that time per the report his left main coronary artery was performed as normal, his LAD had mild diffuse disease, the LCx had no high-grade stenosis, the RCA was considered a nondominant vessel, his LVEF was 65%. [facility] Medical History (Updated 12/15/21 @ 23:[address] Soraida Schaffer, ) Benign neoplasm of rectum and anal canal Erectile dysfunction Essential (primary) hypertension Former tobacco use Hyperlipidemia Paroxysmal atrial fibrillation Prostate cancer Home Medications aspirin 81 mg chewable tablet 81 mg PO DAILY@0800 06/17/13 [History Last Taken 06/17/13 08:00] atorvastatin 10 mg tablet 10 mg PO QHS 06/17/13 [History Last Taken 06/16/13] multivitamin,[id number] (Complete Multivitamin tablet) 1 tab PO QDAY 05/10/17 [History Last Taken Unknown] magnesium oxide 400 mg PO DAILY 09/10/19 [History Last Taken Unknown] amlodipine 10 mg tablet 10 mg PO DAILY #90 tabs 08/06/21 [Rx Last Taken Unknown] hydrochlorothiazide 25 mg tablet 25 mg PO DAILY #90 tabs 08/06/21 [Rx Last Taken Unknown] losartan 100 mg tablet (Cozaar) 100 mg PO QDAY #90 tabs 10/08/21 [Rx Last Taken Unknown] metoprolol succinate 100 mg tablet,extended release 24 hr (Toprol XL) 100 mg PO DAILY #90 tabs 10/19/21 [Rx Last Taken Unknown] Allergy/AdvReac Type Severity Reaction Status Date / Time No Known Allergies Allergy Verified 12/15/21 14:05 Family History Mother Hypertension Father CKD (chronic kidney disease) Prostate cancer Surgical History History of colonoscopy with polypectomy History of left heart catheterization (07/2012) History of prostate surgery History of right inguinal hernia repair S/P excision of lipoma Social History household members: spouse Smoking Status: Former smoker quit date: 03/27/94 pack-years: 20 how long ago did patient quit smoking: Quit 03/27/1994, smoked while in [place], 03/28 ppd x 20 years. alcohol intake: current alcohol intake frequency: a few times a week Alcohol type: wine details: Occasional. substance use type: does not use ROS Constitutional Constitutional: Reports as per HPI Eyes Eyes: Reports as per HPI ENT HEENT: Reports as per HPI Cardiovascular Cardiovascular: Reports chest pain and lightheadedness Respiratory/Chest Respiratory/Chest: Reports as per HPI Gastrointestinal Gastrointestinal: Reports as per HPI Genitourinary Genitourinary: Reports as per HPI Musculoskeletal Musculoskeletal: Reports as per HPI Integumentary Integumentary: Reports as per HPI Neurologic Neurologic: Reports as per HPI Physical Exam Const alert, oriented x3 and no apparent distress Orientation / Consciousness: awake HEENT normocephalic, head/scalp atraumatic and hearing grossly normal bilaterally Eyes PERRL, EOMs intact bilaterally, conjunctivae normal and no scleral icterus Neck full ROM, supple and no JVD Carotids: normal carotid upstroke Resp normal respiratory effort and clear to auscultation bilaterally Cardio regular rate, regular rhythm and S2 normal heart sound Cardio Narrative: Multicomponent S1 GI normal to inspection, nondistended, normoactive bowel sounds Extremity normal to inspection, full ROM and no pedal edema Skin no rashes or lesions noted Psych mental status grossly normal Risk Stratification Risk Stratification Applicable: Yes Age >/= 65: Yes >/= 3 CAD Risk Factors (HTN, HLD, DM, family hx of CAD, or current smoker): No Aspirin Use in the Past 7 Days: Yes Severe Angina (>/= episodes in 24 hours): Yes EKG ST Changes >/= 0.5mm: No Positive Cardiac Marker: Yes MARCIE Risk Stratification Score: 4 MARCIE % Risk: 20% Risk Procedure Criteria Type of Procedure Procedure Type: Elective Elective Risks - COVID COVID Risk Discussion: The surgeon/proceduralist and patient have discussed in detail the risk of exposure to and/or potential harm posed by the COVID-19 virus with having a surgery/procedure at this time versus the risk of delaying the surgery/procedure. It is not possible to know either the risk of delaying the surgery or procedure or chance of getting an infection with perfect accuracy, but a joint decision was made between the patient and the surgeon/proceduralist to proceed at this time with the scheduled surgery/procedure as indicated on the consent form. Objective Data Vital Signs: Vital Signs Temp Pulse Resp BP Pulse Ox O2 Del Method 97.9 F 97 18 125/85 H 99 Room Air 12/16/21 03:00 12/16/21 06:52 12/16/21 03:00 12/16/21 03:00 12/16/21 06:52 12/16/21 06:52 Oxygen Delivery Method Room Air Weight: 178 lb 9.191 oz Body Mass Index (BMI) 27.1 Intake & Output: Intake and Output for Last 24 Hours 12/14/21 12/15/21 12/16/21 23:59 23:59 23:59 Intake Total 1002.93 / 1002.93 74.25 / 74.25 Balance 1002.93 / 1002.93 74.25 / 74.25 Lab / Micro Data Result Diagrams: 12/16/21 03:17 12/16/21 03:17 Labs: Laboratory Results - last 24 hr 12/15/21 14:40: WBC 11.8 H, RBC 4.43 L, Hgb 13.3, Hct 40.1, MCV 90.5, MCH 30.0, MCHC 33.2, RDW Std Deviation 41.6, RDW Coeff of Leanne 12.6, Plt Count 336, MPV 10.2, Immature Gran % (Auto) 0.500, Neut % (Auto) 77.0 H, Lymph % (Auto) 15.1 L, [place] % (Auto) 6.5, Eos % (Auto) 0.5, Baso % (Auto) 0.4, Absolute Neuts (auto) 9.1 H, Absolute Lymphs (auto) 1.78, Nucleated RBC % 0 12/15/21 14:40: Sodium 133 L, Potassium 3.9, Chloride 96 L, Carbon Dioxide 26.0, Anion Gap 11, BUN 18, Creatinine 1.14, Estim Creat Clear Calc 47.50, Est GFR (M DRD) Af Amer 79, Est GFR (MDRD) Non-Af 65, BUN/Creatinine Ratio 15.8, Glucose 147 H, Calcium 9.2, Magnesium 2.1, Troponin I High Sens 16, TSH 1.65 12/15/21 14:40: B-Natriuretic Peptide 586.2 H 12/15/21 14:40: PT 14.0, INR 1.1, D-Dimer Quant (PE/DVT) 0.47 12/15/21 16:40: Troponin I High Sens 46 12/15/21 18:41: Troponin I High Sens 178 H* 12/15/21 18:41: Magnesium 2.2 12/15/21 20:13: APTT 32.8 12/15/21 23:22: Troponin I High Sens 464 H* 12/16/21 03:17: WBC 10.9, RBC 3.91 L, Hgb 11.8 L, Hct 35.1 L, MCV 89.8, MCH 30.2, MCHC 33.6, RDW Std Deviation 41.8, RDW Coeff of Leanne 12.8, Plt Count 278, MPV 9.5, Immature Gran % (Auto) 0.500, Neut % (Auto) 55.3, Lymph % (Auto) 32.8, [place] % (Auto) 9.2, Eos % (Auto) 1.6, Baso % (Auto) 0.6, Absolute Neuts (auto) 6.0, Absolute Lymphs (auto) 3.56, Nucleated RBC % 0 12/16/21 03:17: Sodium 135 L, Potassium 3.3 L, Chloride 101, Carbon Dioxide 26.0, Anion Gap 8, BUN 16, Creatinine 0.84, Estim Creat Clear Calc 64.46, Est GFR (MDRD) Af Amer 112, Est GFR (MDRD) Non-Af 92, BUN/Creatinine Ratio 19.0, Glucose 88, Calcium 8.2 L, Total Bilirubin 0.50, AST 17, ALT 21, Alkaline Phosphatase 56, Total Protein 6.1 L, Albumin 2.9 L, Globulin 3.2, Albumin/Globulin Ratio 0.9, Triglycerides 44, Cholesterol 84, LDL Cholesterol 29, VLDL Cholesterol 9, HDL Cholesterol 46 12/16/21 03:17: APTT 154.3 H* 12/16/21 04:08: APTT 155.8 H* Rhythm Strip Rhythm Strip: A-fib Rate: 137 Ectopy: None Cardiology Labs/Tests 12/15/21 14:40: WBC 11.8 H, RBC 4.43 L, Hgb 13.3, Hct 40.1, MCV 90.5, MCH 30.0, MCHC 33.2, Plt Count 336, MPV 10.2, Immature Gran % (Auto) 0.500, Neut % (Auto) 77.0 H, Lymph % (Auto) 15.1 L, [place] % (Auto) 6.5, Eos % (Auto) 0.5, Baso % (Auto) 0.4, Absolute Neuts (auto) 9.1 H, Nucleated RBC % 0 12/15/21 14:40: Sodium 133 L, Potassium 3.9, Chloride 96 L, Carbon Dioxide 26.0, Anion Gap 11, BUN 18, Creatinine 1.14, Est GFR (MDRD) Af Amer 79, Est GFR (MDRD) Non-Af 65, BUN/Creatinine Ratio 15.8, Glucose 147 H, Calcium 9.2, Magnesium 2.1 12/15/21 14:40: B-Natriuretic Peptide 586.2 H 12/15/21 14:40: PT 14.0, INR 1.1, D-Dimer Quant (PE/DVT) 0.47 12/15/21 18:41: Magnesium 2.2 12/15/21 20:13: APTT 32.8 12/16/21 03:17: WBC 10.9, RBC 3.91 L, Hgb 11.8 L, Hct 35.1 L, MCV 89.8, MCH 30 .2, MCHC 33.6, Plt Count 278, MPV 9.5, Immature Gran % (Auto) 0.500, Neut % (Auto) 55.3, Lymph % (Auto) 32.8, [place] % (Auto) 9.2, Eos % (Auto) 1.6, Baso % (Auto) 0.6, Absolute Neuts (auto) 6.0, Nucleated RBC % 0 12/16/21 03:17: Sodium 135 L, Potassium 3.3 L, Chloride 101, Carbon Dioxide 26.0, Anion Gap 8, BUN 16, Creatinine 0.84, Est GFR (MDRD) Af Amer 112, Est GFR (MDRD) Non-Af 92, BUN/Creatinine Ratio 19.0, Glucose 88, Calcium 8.2 L, Total Bilirubin 0.50, Triglycerides 44, Cholesterol 84, LDL Cholesterol 29, VLDL Mari sterol 9, HDL Cholesterol 46 12/16/21 03:17: APTT 154.3 H* 12/16/21 04:08: APTT 155.8 H* Rhythm: Sinus rhythm EKG: Sinus rhythm; left axis deviation ECHO: 05-31-2017 Interpretation Summary Normal LV size. Left ventricular systolic function is normal. The estimated ejection fraction is 55 %. No evidence for diastolic dysfunction. Mild (1+) tricuspid valve insufficiency. Mild (1+) eccentric aortic valve insufficiency. Stress Test: 06-18-2013 EXERCISE TOLERANCE TEST: The patient exercised on a Jeff protocol for 10 minutes completing stage 3 and 1 minute of stage 4 achieving a peak heart rate of 148 beats per minute (102% predicted maximum heart rate) and a peak blood pressure of 200/92 mmHg and a peak MET capacity of approximately 11 METS. The baseline ECG demonstrated sinus bradycardia with rare PVCs.? The peak exercise ECG demonstrated no obvious ECG changes. There were rare PVCs pretest, during exercise, and recovery. The functional capacity was considered good. There was no complaint of chest discomfort during exercise or recovery. The examination was discontinued secondary to leg discomfort. IMPRESSION: 1.? Technically adequate (percent predicted maximum heart rate greater than 85%) exercise tolerance test. 2.? Negative (adequate) ECG exercise tolerance test. 3.? Rare PVC pretest, during exercise, and recovery. 4.? Nuclear images pending. MYOCARDIAL PERFUSION IMAGING STUDY: TECHNIQUE: The patient was injected with 11.8 mCi of Tc99m Cardiolite and subsequently rest SPECT Cardiolite nuclear imaging was obtained in the horizontal long, vertical long, and short axes views.? The patient exercised on a Jeff protocol for 10 minutes achieving a peak heart rate of 148 beats per minute (102% predicted ma ximum heart rate) and a peak blood pressure of 200/92 mmHg and a peak MET capacity of 11 METS.? The patient was injected with 33.1 mCi of Tc99m Cardiolite and subsequently stress SPECT Cardiolite nuclear imaging was obtained in the horizontal long, vertical long, and short axes views.? A gated Cardiolite study at peak stress was obtained. INTERPRETATION: Rest and stress SPECT Cardiolite nuclear imaging appear to demonstrate an area of diminished tracer uptake in the basal inferior septal segments without significant change.? Otherwise there appears to be relative uniform tracer uptake.? There are no myocardial perfusion deficits reported on the resting or stress polar map images.? There was end systolic thickening and brightening.? The gated Cardiolite study demonstrates myocardial thickening and inward wall motion.? The reported LVEF is 74%. IMPRESSION: 1.? Rest and stress SPECT Cardiolite nuclear imaging demonstrates relative uniform tracer uptake with no myocardial perfusion changes considered diagnostic for stress induced myocardial ischemia or previous myocardial injury/infarction. 2.? The gated Cardiolite study reports an LVEF of 74%. Cardiac Cath: As noted above Radiography Diagnostic Testing: Radiology Impression Chest X-Ray 12/15/21 15:05 IMPRESSION: No radiographic evidence of acute cardiopulmonary disease. Electronically Signed: Von Toledo MD at 15:25 EDT ,
[2021-12-16] MEDS: amLODIPine 10 MG Tablet PO (08:08)
[2021-12-16] MEDS: Aspirin E.C. 81 MG Tablet PO (08:08)
[2021-12-16] MEDS: hydroCHLOROthiazide 25 MG Tablet PO (08:08)
[2021-12-16] MEDS: Losartan Potassium 100 MG Tablet PO (08:08)
[2021-12-16] MEDS: Potassium Chloride Oral Tablet 20 MEQ 40 MEQ PO (08:09)
--- NOTE | 2021-12-16 08:53 | PN.CARD_ITS ---
Subjective Subjective Patient seen and evaluated. Underwent cardiac catheterization. Objective Data Vital Signs: Vital Signs Temp Pulse Resp BP Pulse Ox O2 Del Method 97.7 F L 52 L 16 122/67 H 98 Room Air 12/16/21 08:12 12/16/21 08:12 12/16/21 08:12 12/16/21 08:12 12/16/21 08:12 12/16/21 08:12 Oxygen Delivery Method Room Air Weight: 178 lb 9.191 oz Body Mass Index (BMI) 27.1 Intake & Output: Intake and Output for Last 24 Hours 12/14/21 12/15/21 12/16/21 23:59 23:59 23:59 Intake Total 1002.93 / 1002.93 84.92 / 84.92 Balance 1002.93 / 1002.93 84.92 / 84.92 Lab / Micro Data Result Diagrams: 12/16/21 03:17 12/16/21 03:17 Labs: Laboratory Results - last 24 hr 12/15/21 14:40: WBC 11.8 H, RBC 4.43 L, Hgb 13.3, Hct 40.1, MCV 90.5, MCH 30.0, MCHC 33.2, RDW Std Deviation 41.6, RDW Coeff of Leanne 12.6, Plt Count 336, MPV 1 0.2, Immature Gran % (Auto) 0.500, Neut % (Auto) 77.0 H, Lymph % (Auto) 15.1 L, [place] % (Auto) 6.5, Eos % (Auto) 0.5, Baso % (Auto) 0.4, Absolute Neuts (auto) 9.1 H, Absolute Lymphs (auto) 1.78, Nucleated RBC % 0 12/15/21 14:40: Sodium 133 L, Potassium 3.9, Chloride 96 L, Carbon Dioxide 26.0, Anion Gap 11, BUN 18, Creatinine 1.14, Estim Creat Clear Calc 47.50, Est GFR (MDRD) Af Amer 79, Est GFR (MDRD) Non-Af 65, BUN/Creatinine Ratio 15.8, Glucose 147 H, Calcium 9.2, Magnesium 2.1, Troponin I High Sens 16, TSH 1.65 12/15/21 14:40: B-Natriuretic Peptide 586.2 H 12/15/21 14:40: PT 14.0, INR 1.1, D-Dimer Quant (PE/DVT) 0.47 12/15/21 16:40: Troponin I High Sens 46 12/15/21 18:41: Troponin I High Sens 178 H* 12/15/21 18:41: Magnesium 2.2 12/15/21 20:13: APTT 32.8 12/15/21 23:22: Troponin I High Sens 464 H* 12/16/21 03:17: WBC 10.9, RBC 3.91 L, Hgb 11.8 L, Hct 35.1 L, MCV 89.8, MCH 30.2, MCHC 33.6, RDW Std Deviation 41.8, RDW Coeff of Leanne 12.8, Plt Count 278, MPV 9.5, Immature Gran % (Auto) 0.500, Neut % (Auto) 55.3, Lymph % (Auto) 32.8, [place] % (Auto) 9.2, Eos % (Auto) 1.6, Baso % (Auto) 0.6, Absolute Neuts (auto) 6.0, Absolute Lymphs (auto) 3.56, Nucleated RBC % 0 12/16/21 03:17: Sodium 135 L, Potassium 3.3 L, Chloride 101, Carbon Dioxide 26.0, Anion Gap 8, BUN 16, Creatinine 0.84, Estim Creat Clear Calc 64.46, Est GFR (MDRD) Af Amer 112, Est GFR (MDRD) Non-Af 92, BUN/Creatinine Ratio 19.0, Glucose 88, Calcium 8.2 L, Total Bilirubin 0.50, AST 17, ALT 21, Alkaline Phosphatase 56, Total Protein 6.1 L, Albumin 2.9 L, Globulin 3.2, Albumin/Globulin Ratio 0.9, Triglycerides 44, Cholesterol 84, LDL Cholesterol 29, VLDL Cholesterol 9, HDL Cholesterol 46 12/16/21 03:17: APTT 154.3 H* 12/16/21 04:08: APTT 155.8 H* Rhythm Strip Rhythm Strip: A-fib Rate: 137 Ectopy: None Cardiology Labs/Tests 12/15/21 14:40: WBC 11.8 H, RBC 4.43 L, Hgb 13.3, Hct 40.1, MCV 90.5, MCH 30.0, MCHC 33.2, Plt Count 336, MPV 10.2, Immature Gran % (Auto) 0.500, Neut % (Auto) 77.0 H, Lymph % (Auto) 15.1 L, [place] % (Auto) 6.5, Eos % (Auto) 0.5, Baso % (Auto) 0.4, Absolute Neuts (auto) 9.1 H, Nucleated RBC % 0 12/15/21 14:40: Sodium 133 L, Potassium 3.9, Chloride 96 L, Carbon Dioxide 26.0, Anion Gap 11, BUN 18, Creatinine 1.14, Est GFR (MDRD) Af Amer 79, Est GFR (MDRD) Non-Af 65, BUN/Creatinine Ratio 15.8, Glucose 147 H, Calcium 9.2, Magnesium 2.1 12/15/21 14:40: B-Natriuretic Peptide 586.2 H 12/15/21 14:40: PT 14.0, INR 1.1, D-Dimer Quant (PE/DVT) 0.47 12/15/21 18:41: Magnesium 2.2 12/15/21 20:13: APTT 32.8 12/16/21 03:17: WBC 10.9, RBC 3.91 L, Hgb 11.8 L, Hct 35.1 L, MCV 89.8, MCH 30.2, MCHC 33.6, Plt Count 278, MPV 9.5, Immature Gran % (Auto) 0.500, Neut % (Auto) 55.3, Lymph % (Auto) 32.8, [place] % (Auto) 9.2, Eos % (Auto) 1.6, Baso % (Auto) 0.6, Absolute Neuts (auto) 6.0, Nucleated RBC % 0 12/16/21 03:17: Sodium 135 L, Potassium 3.3 L, Chloride 101, Carbon Dioxide 26.0, Anion Gap 8, BUN 16, Creatinine 0.84, Est GFR (MDRD) Af Amer 112, Est GFR (MDRD) Non-Af 92, BUN/Creatinine Ratio 19.0, Glucose 88, Calcium 8.2 L, Total Bilirubin 0.50, Triglycerides 44, Cholesterol 84, LDL Cholesterol 29, VLDL [place] lesterol 9, HDL Cholesterol 46 12/16/21 03:17: APTT 154.3 H* 12/16/21 04:08: APTT 155.8 H* Rhythm: EKG: ECHO: Stress Test: Cardiac Cath: PCI: CT Surgery: Holter monitor: EPS: PPM: CXR: Chest CT Scan: Radiography Diagnostic Testing: Radiology Impression Chest X-Ray 12/15/21 15:05 IMPRESSION: No radiographic evidence of acute cardiopulmonary disease. Electronically Signed: Von Tloedo MD at 15:25 EDT , Physical Exam Const alert, oriented x3 and no apparent distress General Appearance: cooperative HEENT hearing grossly normal bilaterally Head and Scalp: atraumatic Eyes EOMs intact bilaterally Neck General: normal visual inspection Chest inspection of chest normal and palpation of chest normal Resp normal respiratory effort Auscultation: clear to auscultation bilaterally Cardio regular rate, regular rhythm, S1 normal heart sound and S2 normal heart sound Jugular Venous Distention: JVD GI normal to inspection, nondistended, normoactive bowel sounds Extremity normal capillary refill and no pedal edema Peripheral Pulses: Yes pulses 2+ throughout and femoral pulses present Skin no rashes or lesions noted Neuro oriented x3 and CN's II-XII intact bilaterally Psych Appearance: grossly normal and appropriate Assessment & Plan Assessment/Plan (1) NSTEMI, initial episode of care: PLAN: He did have mildly elevated cardiac enzymes. Cardiac catheterization done this morning demonstrated the following: Normal left main coronary artery with a short vessel. Left anterior descending artery with mild diffuse disease. Dominant left circumflex artery with no high-grade stenosis. Nondominant right coronary artery with no high-grade stenosis. Preserved left ventricular systolic function. Based on the above angiographic findings we will continue with aggressive medical therapy. There is no vessel to intervene on. (2) Atrial fibrillation with RVR: PLAN: Patient has a history of paroxysmal atrial fibrillation. The plan to be to continue current medical therapy. Would recommend considering anticoagulation. (3) Essential (primary) hypertension: PLAN: Continue antihypertensive therapy. Thank you for allowing me to participate in the care of your patient. Please don't hesitate to call if any issues arise.
--- NOTE | 2021-12-16 08:59 | CL.D_ITS ---
Patient Name: MATILDA BROOKE Study Date: 12/16/2021 Performing: Rodrick Jay MD Ht: 68 inches 172.72 cm : 1940 Wt: 178.57 lbs 81 kg Age: 81 Gender: male BSA: 1.95 PROCEDURE(S) PERFORMED [id number])LHC/COR/LV CLINICAL PROFILE AND INDICATIONS Indications: Suspected CAD Heart Failure: None Stress/Imaging Stress/Image Study Performed: No CONCLUSIONS Non obstructive coronary arteries RECOMMENDATIONS Medical therapy DESCRIPTION OF PROCEDURE The patient arrived to the procedure lab. The risks and benefits of the procedure as well as a full description of our services here and current unavailability of surgical backup were fully explained to the patient and/or their significant other prior to the catheterization. The Timeout was completed, verifying the correct patient and procedure. The patient's procedural site was prepped and draped in the usual fashion. Local anesthetic was given subcutaneously to right radial region with Lidocaine 2%. Using a modified Seldinger technique, arterial access was obtained via the right radial artery, a 6Fr sheath was inserted. Left Coronary Artery selective angiography was performed in multiple views using a 5 Fr. 4.0 [place] catheter. Right Coronary Artery selective angiography was then performed in multiple views using a 5 Fr. 4.0 [place] catheter. Left Ventriculography was performed in OJEDA projection using a 5 Fr. Pigtail catheter. LV to AO pullback pressures were then recorded.The arterial sheath was pulled and a TR Band was applied for hemostasis CORONARY ANGIOGRAPHY DOMINANCE: Left Dominant LEFT HEART ASSESSMENT Left Ventricular Ejection Fraction: by LV Gram 70 % Normal LV wall motion Normal Left Ventricular systolic function LEFT MAIN: Angiographically normal LEFT ANTERIOR DESCENDING ARTERY: Mild luminal irregularities less than 30% CIRCUMFLEX ARTERY: Mild luminal irregularities less than 30% RIGHT CORONARY ARTERY: Mild luminal irregularities COMPLICATIONS No Complications PROCEDURE MEDICATIONS Fentanyl 50 mcg IV Versed 1 mg IV Versed 1 mg IV Oxygen: 2 L/min via nasal cannula Heparin given IA 12/16/2021 08:43:40 Verapamil 2.5mg, Ntg 100mcgs, 3000 units of Heparin given IA 12/16/2021 08:43:40 SUMMARY OF HEMODYNAMIC DATA Time AIR REST ECG 08:24:59 AO 123/58 (86) SA 08:43:30 LV 95/3, 10 08:48:12 LV 100/3, 7 08:48:21 LV 93/4, 13 08:48:55 LVp 90/2, 10 08:49:00 AOp 98/47 (69) 08:49:07 Signed By Rodrick Jay MD On 12/16/2021 08:58:59 Rodrick Jay MD
[2021-12-16] MEDS: Amiodarone 200 MG Tablet PO (10:25)
[2021-12-16] MEDS: APIXABAN 5 MG TABLET PO ×2 (10:26→20:55)
--- NOTE | 2021-12-16 10:59 | PCM.PN.HOSP ---
Documented by User: Sweta John NP, LEAD DATA ARCHITECT-C 12/16/21 11:12 Subjective Subjective Patient seen and examined. States he feels great. Patient denies chest pain, shortness of breath, palpitations. To undergo echocardiogram and med adjustment. Objective Data Objective Data Vital Signs: Vital Signs Temp Pulse Resp BP Pulse Ox O2 Del Method 97.7 F L 48 L 16 116/71 97 Room Air 12/16/21 08:12 12/16/21 09:10 12/16/21 09:10 12/16/21 09:10 12/16/21 09:10 12/16/21 09:10 Oxygen Delivery Method Room Air Weight: 178 lb 9.191 oz Body Mass Index (BMI) 27.1 Intake & Output: Intake and Output for Last 24 Hours 12/14/21 12/15/21 12/16/21 23:59 23:59 23:59 Intake Total 1002.93 / 1002.93 84.92 / 84.92 Balance 1002.93 / 1002.93 84.92 / 84.92 Lab / Micro Data Result Diagrams: 12/16/21 03:17 12/16/21 03:17 Labs: Laboratory Results - last 24 hr 12/15/21 14:40: WBC 11.8 H, RBC 4.43 L, Hgb 13.3, Hct 40.1, MCV 90.5, MCH 30.0, MCHC 33.2, RDW Std Deviation 41.6, RDW Coeff of Leanne 12.6, Plt Count 336, MPV 10.2, Immature Gran % (Auto) 0.500, Neut % (Auto) 77.0 H, Lymph % (Auto) 15.1 L, [place] % (Auto) 6.5, Eos % (Auto) 0.5, Baso % (Auto) 0.4, Absolute Neuts (auto) 9.1 H, Absolute Lymphs (auto) 1.78, Nucleated RBC % 0 12/15/21 14:40: Sodium 133 L, Potassium 3.9, Chloride 96 L, Carbon Dioxide 26.0, Anion Gap 11, BUN 18, Creatinine 1.14, Estim Creat Clear Calc 47.50, Est GFR (MDRD) Af Amer 79, Est GFR (MDRD) Non-Af 65, BUN/Creatinine Ratio 15.8, Glucose 147 H, Calcium 9.2, Magnesium 2.1, Troponin I High Sens 16, TSH 1.65 12/15/21 14:40: B-Natriuretic Peptide 586.2 H 12/15/21 14:40: PT 14.0, INR 1.1, D-Dimer Quant (PE/DVT) 0.47 12/15/21 16:40: Troponin I High Sens 46 12/15/21 18:41: Troponin I High Sens 178 H* 12/15/21 18:41: Magnesium 2.2 12/15/21 20:13: APTT 32.8 12/15/21 23:22: Troponin I High Sens 464 H* 12/16/21 03:17: WBC 10.9, RBC 3.91 L, Hgb 11.8 L, Hct 35.1 L, MCV 89.8, MCH 30.2, MCHC 33.6, RDW Std Deviation 41.8, RDW Coeff of Leanne 12.8, Plt Count 278, MPV 9.5, Immature Gran % (Auto) 0.500, Neut % (Auto) 55.3, Lymph % (Auto) 32.8, [place] % (Auto) 9.2, Eos % (Auto) 1.6, Baso % (Auto) 0.6, Absolute Neuts (auto) 6.0, Absolute Lymphs (auto) 3.56, Nucleated RBC % 0 12/16/21 03:17: Sodium 135 L, Potassium 3.3 L, Chloride 101, Carbon Dioxide 26.0, Anion Gap 8, BUN 16, Creatinine 0.84, Estim Creat Clear Calc 64.46, Est GFR (MDRD) Af Amer 112, Est GFR (MDRD) Non-Af 92, BUN/Creatinine Ratio 19.0, Glucose 88, Calcium 8.2 L, Total Bilirubin 0.50, AST 17, ALT 21, Alkaline Phosphatase 56, Total Protein 6.1 L, Albumin 2.9 L, Globulin 3.2, Albumin/Globulin Ratio 0.9, Triglycerides 44, Cholesterol 84, LDL Cholesterol 29, VLDL Cholesterol 9, HDL Cholesterol 46 12/16/21 03:17: APTT 154.3 H* 12/16/21 04:08: APTT 155.8 H* Radiography Diagnostic Testing: Radiology Impression Chest X-Ray 12/15/21 15:05 IMPRESSION: No radiographic evidence of acute cardiopulmonary disease. Electronically Signed: Von Toledo MD at 15:25 EDT , Rhythm Strip Rhythm Strip: A-fib Rate: 137 Ectopy: None Physical Exam Const alert and oriented x3 HEENT normocephalic and moist oral mucous membranes Eyes PERRL, EOMs intact bilaterally and conjunctivae normal Neck no lymphadenopathy Resp normal respiratory effort and clear to auscultation bilaterally Cardio regular rhythm and no murmurs Cardio Narrative: Sinus marisela, BBB Peripheral Pulses: pulses 2+ throughout GI normal to inspection, nondistended, normoactive bowel sounds, non-tender and non-distended Extremity normal to inspection Skin no rashes or lesions noted Lesions: no lesions Rashes: no rashes Trauma: no lacerations or abrasions Neuro CN's II-XII intact bilaterally, no focal motor deficits, no sensory deficits noted and deep tendon reflexes 2+ bilaterally Psych mental status grossly normal and affect normal Assessment & Plan Assessment/Plan (1) NSTEMI, initial episode of care: (2) Atrial fibrillation with RVR: (3) Hypokalemia: PLAN: Plan 1. NSTEMI, demand ischemia secondary to atrial fibrillation with RVR-heart cath with nonobstructive coronary arteries. Continue aspirin, statin. 2. Paroxysmal atrial fibrillation with RVR-cardiology consulted. Underwent heart cath as noted above. Continue amiodarone, metoprolol regimen. To begin Eliquis tonight. Echo report pending. Currently sinus bradycardia. 3. Mild hypokalemia-replaced per protocol. Trend BMP. 4. Hypertension-stable, continue current regimen. 5. Hyperlipidemia-continue statin. 6. History of prostate cancer-in remission. 7. Former tobacco use-encouraged cessation. DVT prophylaxis- Eliquis This patient was seen by NATHANAEL Us under the supervision of Dr. Carmona. Documented by User: Dr. Xiomara Carmona DO 12/16/21 13:03 Subjective Subjective Patient was seen in conjunction with Sweta John NP. The following represents my independent physical examination and history. Please see below for addendum the above. Patient states he is feeling well at this time. Is anxious to go home. Medication changes were made by cardiology and I explained that they would like to see how he does with these medication changes prior to discharge and we will likely be able to get him home tomorrow. He is ending of this. Objective Data Lab / Micro Data Result Diagrams: 12/16/21 03:17 12/16/21 03:17 Physical Exam Const alert, oriented x3, no apparent distress, healthy appearing and well nourished Constitutional Narrative: Elderly white male who appears younger than stated age, sitting up in bed, at bedside, patient appears comfortable nontoxic HEENT head/scalp atraumatic and moist oral mucous membranes Head and Scalp: normocephalic Resp normal respiratory effort, no retractions, no use of accessory muscles and clear to auscultation bilaterally Auscultation: Negative for crackles, rales, rhonchi or wheezes Cardio regular rhythm, S1 normal heart sound, S2 normal heart sound, no murmurs, no rub, no gallops, no clicks and no JVD Cardio Narrative: Sinus bradycardia GI normal to inspection, nondistended, normoactive bowel sounds, soft to palpation, non-tender and hepatosplenomegaly Extremity no clubbing, cyanosis or edema Extremity Narrative: 2+ pedal pulses Neuro oriented x3, moves all extremities and no focal motor deficits Speech: speech normal Assessment & Plan Assessment/Plan (1) NSTEMI, initial episode of care: (2) Atrial fibrillation with RVR: (3) Hypokalemia: PLAN: Plan Assessment: NSTEMI type II PAF with RVR Hypokalemia Hypertension Hyperlipidemia History of prostate cancer-remission Nonobstructive CAD History of tobacco abuse Plan: -Patient was taken to the [facility] today secondary to elevated troponin and found to have nonobstructive coronary artery disease -Patient has reverted back to normal sinus rhythm -Amiodarone 200 mg daily initiated -Eliquis 5 mg p.o. twice daily initiated -Metoprolol decreased from 100 mg twice daily to 50 mg -We will monitor for the next 12 to 18 hours for stability and probable discharge tomorrow as long as we have patient remained stable -Continue all other home medication as ordered -Potassium replacement--> recheck a.m. BMP -D/C IV fluids Charges/Coding Visit Charges Inpatient E&M: 84768 Subs Hosp L2
--- NOTE | 2021-12-16 11:00 | CASEMGMT ---
RN CM Face to Face with patient for initial transition planning/care coordination assessment. RN CM introduced self and role at [facility]. Patient lying in bed, alert and oriented, at bedside. Patient willing to participate in assessment and is able to answer all questions appropriately. Care providers, pharmacy, and demographics verified. Patient wishes to discharge home, denies need for home health at this time. Patient states he has no further needs or concerns at this time. CM to follow for discharge planning needs that may arise. PCP: [facility] Specialists: [facility] Preferred Pharmacy: [facility] Insurance: [employer] [facility] Prescription Benefit: yes Living Will/HPOA: yes, Nhi Setve, HPOA LNOK: Living Arrangements: Patient lives with in a 2 story home with bed and bath on first floor. 4 steps and railing to enter the home. Patient is independent at home. Transportation: self, DME/HHC: Patient has raised toilets at home. Patient denies previous HHC or SNF Disposition Plan: Patient to discharge home with family support and follow-up plans in place. Elise MURPHY, RN, CM
--- NOTE | 2021-12-16 11:01 | ECHOD_ITS ---
Reason For Study: ARRHYTHMIA Procedure This was a 2D Doppler, Color Flow transthoracic echocardiogram. Exam performed in department. Left Ventricle Normal LV size. Left ventricular systolic function is normal. The estimated ejection fraction is 60 %. No regional wall motion abnormalities noted. Right Ventricle Normal RV size. Normal systolic function. Atria Normal left atrium. Normal right atrium. Mitral Valve Normal mitral valve. Tricuspid Valve Normal tricuspid valve. Mild tricuspid valve insufficiency. Pulmonary artery systolic pressure is 28 mmHg. Aortic Valve Normal aortic valve. Trisinus/trileaflet aortic valve. Pulmonic Valve Normal pulmonic valve. Great Vessels Normal aortic root. The pulmonary artery is normal size. Normal inferior vena cava. Pericardium/Pleural No pericardial effusion. MMode/2D Measurements & Calculations LVIDd: 4.1 cm IVSd: 0.96 cm Ao root diam: 3.5 cm LVIDs: 2.9 cm LVPWd: 1.0 cm RVDd: 3.4 cm FS: 29.8 % LAV(MOD-bp): 66.0 ml LA A4 area: 19.5 cm2 LA dimension(2D): 3.9 cm LAV(MOD-bp) Indexed: 33.9 ml/m2 LAV(MOD-sp2): 67.2 ml LAV(MOD-sp4): 61.7 ml RA A4 area: 16.1 cm2 Time Measurements MV dec time: 0.22 sec Doppler Measurements & Calculations MV E max chandrakant: 80.5 cm/sec Lat Peak E' Chandrakant: 9.3 cm/sec Med Peak E' Chandrakant: 7.3 cm/sec MV A max chandrakant: 52.3 cm/sec E/E' lat: 8.7 E/E' med: 11.0 MV E/A: 1.5 MV dec slope: 373.1 cm/sec2 Ao V2 max: 106.0 cm/sec LV V1 max: 74.5 cm/sec Ao max P.5 mmHg LV V1 max P.2 mmHg PA V2 max: 76.9 cm/sec TR max chandrakant: 245.1 cm/sec TR max P.0 mmHg ECHO/Echo Complete Interpretation Summary Normal LV size. Left ventricular systolic function is normal. The estimated ejection fraction is 60 %. Pulmonary artery systolic pressure is 28 mmHg. Ordering Physician: Jessica Celaya Referring Physician: Lawrence Lea Performed By: Karen Eckert RDCS, RVT
[2021-12-16] MEDS: 0.9% Normal Saline 1,000 ML 75 ML IV (12:02)
[2021-12-16] MEDS: Atorvastatin Calcium 10 MG Tablet PO (20:55)
[2021-12-17 03:00] VITALS: BP 151/70; PULSE 49; PULSE 53; RESP 16; TEMP 36.9; O2SAT 98
[2021-12-17 06:29] LABS: Basophil# 0.06 X10^3/uL; Basophil% 0.7 % (0-1); Eosinophil# 0.25 X10^3/uL; Hematocrit 36.8 % (40-54); Hemoglobin 12.7 g/dL (13.0-16.5); Lymphocyte % 27.2 % (19-41); Mean Corp Hgb Conc 34.5 g/dL (32-36); Mean Corpuscular Hgb 30.9 pg (27.0-32.0); Mean Corpuscular Volume 89.5 fL (80-94); Mean Platelet Vol. 9.6 fl (6.2-12.0); Monocyte# 0.86 X10^3/uL; Monocyte% 10.2 % (0-10); NRBC Flagged by Analyzer 0 % (0-5); Neutrophil # 4.96 X10^3/uL (2.7-7.7); Neutrophil % 58.7 % (47-70); Platelet Count 283 K/mm3 (150-450); RBC Distribution Width CV 12.6 % (11.6-14.6); RBC Distribution Width SD 41.6 fl (35.1-43.9); Red Blood Count 4.11 M/mm3 (4.6-6.2); White Blood Count 8.5 K/mm3 (4.4-11.0)
[2021-12-17 06:52] LABS: Anion Gap 7 (5-15); BUN 15 mg/dL (7-18); BUN/Creat Ratio 16.3 RATIO (10-20); Chloride 100 mmol/L (98-107); Creatinine, Serum 0.92 mg/dL (0.70-1.30); EST Glomerular Filtration Rate 84 mL/min (>60); Est Glom Filt Rate - Afr Amer 101 mL/min (>60); Estimated Creatinine Clearance 58.86 ml/min; Glucose 98 mg/dL (74-106); Sodium Level 136 mmol/L (136-145)
[2021-12-17 06:58] VITALS: PULSE 49
[2021-12-17 07:12] VITALS: O2SAT 96
--- NOTE | 2021-12-17 07:53 | PN.CARD_ITS ---
Subjective Subjective Patient seen and evaluated. Doing very well. Itching to go home. Objective Data Vital Signs: Vital Signs Temp Pulse Resp BP Pulse Ox O2 Del Method 98.4 F 49 L 16 151/70 H 98 Room Air 12/17/21 03:00 12/17/21 06:58 12/17/21 03:00 12/17/21 03:00 12/17/21 03:00 12/17/21 03:00 Oxygen Delivery Method Room Air Weight: 177 lb 7.554 oz Body Mass Index (BMI) 27.1 Intake & Output: Intake and Output for Last 24 Hours 12/15/21 12/16/21 12/17/21 23:59 23:59 23:59 Intake Total 1002.93 / 1002.93 2243.67 / 2243.67 Balance 1002.93 / 1002.93 2243.67 / 2243.67 Lab / Micro Data Result Diagrams: 12/17/21 06:05 12/17/21 06:05 Labs: Laboratory Results - last 24 hr 12/17/21 06:05: WBC 8.5, RBC 4.11 L, Hgb 12.7 L, Hct 36.8 L, MCV 89.5, MCH 30.9, MCHC 34.5, RDW Std Deviation 41.6, RDW Coeff of Leanne 12.6, Plt Count 283, MPV 9.6, Immature Gran % (Auto) 0.200, Neut % (Auto) 58.7, Lymph % (Auto) 27.2, [place] % (Auto) 10.2 H, Eos % (Auto) 3.0, Baso % (Auto) 0.7, Absolute Neuts (auto) 5.0, Absolute Lymphs (auto) 2.30, Nucleated RBC % 0 12/17/21 06:05: Sodium 136, Potassium 4.0, Chloride 100, Carbon Dioxide 29.0, Anion Gap 7, BUN 15, Creatinine 0.92, Estim Creat Clear Calc 58.86, Est GFR (MDRD) Af Amer 101, Est GFR (MDRD) Non-Af 84, BUN/Creatinine Ratio 16.3, Glucose 98, Calcium 9.0 Rhythm Strip Rhythm Strip: A-fib Rate: 137 Ectopy: None Cardiology Labs/Tests 12/17/21 06:05: WBC 8.5, RBC 4.11 L, Hgb 12.7 L, Hct 36.8 L, MCV 89.5, MCH 30.9, MCHC 34.5, Plt Count 283, MPV 9.6, Immature Gran % (Auto) 0.200, Neut % (Auto) 58.7, Lymph % (Auto) 27.2, [place] % (Auto) 10.2 H, Eos % (Auto) 3.0, Baso % (Auto) 0.7, Absolute Neuts (auto) 5.0, Nucleated RBC % 0 12/17/21 06:05: Sodium 136, Potassium 4.0, Chloride 100, Carbon Dioxide 29.0, Anion Gap 7, BUN 15, Creatinine 0.92, Est GFR (MDRD) Af Amer 101, Est GFR (MDRD) Non-Af 84, BUN/Creatinine Ratio 16.3, Glucose 98, Calcium 9.0 Rhythm: EKG: ECHO: Stress Test: Cardiac Cath: PCI: CT Surgery: Holter monitor: EPS: PPM: CXR: Chest CT Scan: Radiography Diagnostic Testing: Radiology Impression Echocardiogram 12/16/21 11:01 Interpretation Summary Normal LV size. Left ventricular systolic function is normal. The estimated ejection fraction is 60 %. Pulmonary artery systolic pressure is 28 mmHg. Ordering Physician: Jessica Celaya Referring Physician: Lawrence Lea Performed By: Karen Eckert, SHELLEY, RVT Physical Exam Const alert, oriented x3, no apparent distress, healthy appearing and well nourished Constitutional Narrative: Elderly white male who appears younger than stated age, sitting up in bed, at bedside, patient appears comfortable nontoxic HEENT head/scalp atraumatic and moist oral mucous membranes Head and Scalp: normocephalic Resp normal respiratory effort, no retractions, no use of accessory muscles and clear to auscultation bilaterally Auscultation: Negative for crackles, rales, rhonchi or wheezes Cardio regular rhythm, S1 normal heart sound, S2 normal heart sound, no murmurs, no rub, no gallops, no clicks and no JVD Cardio Narrative: Sinus bradycardia GI normal to inspection, nondistended, normoactive bowel sounds, soft to palpation, non-tender and hepatosplenomegaly Extremity no clubbing, cyanosis or edema Extremity Narrative: 2+ pedal pulses Neuro oriented x3, moves all extremities and no focal motor deficits Speech: speech normal Assessment & Plan Assessment/Plan (1) NSTEMI, initial episode of care: PLAN: He did have mildly elevated cardiac enzymes. Cardiac catheterization done demonstrated the following: Normal left main coronary artery with a short vessel. Left anterior descending artery with mild diffuse disease. Dominant left circumflex artery with no high-grade stenosis. Nondominant right coronary artery with no high-grade stenosis. Preserved left ventricular systolic function. Based on the above angiographic findings we will continue with aggressive medical therapy. There is no vessel to intervene on. (2) Atrial fibrillation with RVR: PLAN: Patient has a history of paroxysmal atrial fibrillation. The plan to be to continue current medical therapy. Would recommend anticoagulation together with amiodarone therapy. (3) Essential (primary) hypertension: PLAN: Continue antihypertensive therapy. Thank you for allowing me to participate in the care of your patient. Please don't hesitate to call if any issues arise.
[2021-12-17 08:01] VITALS: BP 160/73; PULSE 56; RESP 12; TEMP 36.6; O2SAT 97
[2021-12-17] MEDS: Aspirin E.C. 81 MG Tablet PO (08:10)
[2021-12-17] MEDS: amLODIPine 10 MG Tablet PO (08:10)
[2021-12-17] MEDS: hydroCHLOROthiazide 25 MG Tablet PO (08:10)
[2021-12-17] MEDS: Amiodarone 200 MG Tablet PO (08:11)
[2021-12-17] MEDS: Losartan Potassium 100 MG Tablet PO (08:11)
[2021-12-17] MEDS: APIXABAN 5 MG TABLET PO (08:11)
[2021-12-17 08:34] VITALS: BP 160/73; PULSE 56
[2021-12-17] MEDS: Metoprolol(XL)Succ 50 MG Tablet PO (08:34)
--- NOTE | 2021-12-17 08:53 | DCINST_ITS ---
Discharge Instructions Diet Discharge Diet: Low fat / Low cholesterol Activity Discharge Activity: Return to Normal Activity Additional Activity Instructions:: Follow-up post cath instructions Dressing / Incision Call your doctor if your incision/area has: Continuous Slow Oozing, Sudden Increased Bleeding, Increased Pain/ Swelling, Increased Redness, Foul Smelling Discharge and Swelling at the incision site Call your doctor if you observe: Shortness of breath, Dizziness and Chest pain Follow Up Care Test Results: Test results from this visit will be discussed in further detail at your follow- up appointment, if applicable. Discharge Plan Admission Admit Date/Time: 12/15/21 19:55 Primary Reason for Your Visit: NSTEMI, a.fib Attending Provider: Xiomara Carmona Primary Care Provider: Lawrence Lea Consulting Providers: Ortiz Harrison ; Jessica Celaya Discharge Orders/Prescriptions Prescriptions: New amiodarone 200 mg Tablet 200 mg PO DAILY 30 Days Qty: 30 0RF metoprolol succinate 50 mg Tablet Extended Release 24 Hr 50 mg PO DAILY 30 Days Qty: 30 0RF Eliquis 5 mg Tablet 5 mg PO BID Qty: 60 0RF Continued multivitamin,jm-ebju-xtporsii tablet tablet 1 tab PO QDAY magnesium oxide 400 mg magnesium tablet 400 mg PO DAILY atorvastatin 10 MG tablet 10 mg PO QHS Label Comments: CHOLESTEROL aspirin 81 MG tablet,chewable 81 mg PO DAILY@0800 Label Comments: BLOOD THINNER amlodipine 10 mg tablet 10 mg PO DAILY Qty: 90 3RF hydrochlorothiazide 25 mg tablet 25 mg PO DAILY Qty: 90 3RF losartan [Cozaar] 100 mg tablet 100 mg PO QDAY Qty: 90 4RF Discontinued metoprolol succinate [Toprol XL] 100 mg tablet extended release 24 hr 100 mg PO DAILY Qty: 90 3RF Referrals / Follow Up: Rodrick Jay MD [Med Staff - Active Staff] - Within 1 Month Lawrence Lea MD [Primary Care Provider] - In 1 Week Disposition Disposition (needs filled in before D/C Order can be placed): Home, Self Care
--- NOTE | 2021-12-17 09:04 | DS.PCM_ITS ---
Documented by User: Sweta John NP, [employer] 12/17/21 09:13 Providers Date of Admission: 12/15/21 Date of Discharge: 12/17/21 Primary Care Physician: Dr. Lawrence Lea MD Consultations 12/15/21 21:21 Consult: Cardiology Routine Consulting Provider: Ortiz Harrison Reason for Consult: Chest Pain, NSTEMI, PAF w/ RVR EMERGENT Consult: No MD Notified: Yes Date Notified: 12/15/21 Time Notified: 20:37 Method of Notification: called Reason For Visit: NSTEMI, PAF WITH RVR Diagnosis Discharge Diagnosis (1) NSTEMI, initial episode of care: Status: Acute Code(s): I21.4 - Non-ST elevation (NSTEMI) myocardial infarction (2) Atrial fibrillation with RVR: Status: Acute Code(s): I48.91 - Unspecified atrial fibrillation (3) Essential (primary) hypertension: Status: Chronic Code(s): I10 - Essential (primary) hypertension Medications at Discharge Home Medications aspirin 81 mg chewable tablet 81 mg PO DAILY@0800 HEART HEALTH 06/17/13 atorvastatin 10 mg tablet 10 mg PO QHS CHOLESTEROL 06/17/13 multivitamin,cm-nsuq-gxfvdryi (Complete Multivitamin tablet) 1 tab PO QDAY VITAMIN 05/10/17 magnesium oxide 400 mg PO DAILY SUPPLEMENT 09/10/19 amlodipine 10 mg tablet 10 mg PO DAILY #90 tabs 08/06/21 hydrochlorothiazide 25 mg tablet 25 mg PO DAILY #90 tabs 08/06/21 losartan 100 mg tablet (Cozaar) 100 mg PO QDAY #90 tabs 10/08/21 amiodarone 200 mg tablet 200 mg PO DAILY 30 days #30 tabs 12/17/21 apixaban 5 mg tablet (Eliquis) 5 mg PO BID #60 tabs 12/17/21 metoprolol succinate 50 mg tablet,extended release 24 hr 50 mg PO DAILY 30 days #30 tabs 12/17/21 Hospital Course Operations None Procedures 2-D Echocardiogram and Cardiac catheterization Summary of Care Provided Hospital Course: Patient is an 81-year-old male admitted 12/15/2021 due to chest pain, lightheadedness and dyspnea. 1.? NSTEMI, demand ischemia secondary to atrial fibrillation with RVR-heart cath with nonobstructive coronary arteries.? Continue aspirin, statin. Follow up with cardiology in one month. 2. Paroxysmal atrial fibrillation with RVR-cardiology consulted during admission.? Underwent heart cath as noted above.? Metoprolol XL reduced to 50 mg daily. Initiated on amiodarone 200 mg daily. Initiated on anticoagulation with Eliquis as well. Patient has remained sinus rhythm with mild bradycardia. Echocardiogram demonstrated an EF of 60%. Follow-up with cardiology as noted above. 3. Mild hypokalemia-replaced per protocol.? Resolved. 4. Hypertension-stable, continue current regimen. 5. Hyperlipidemia-continue statin. 6. History of prostate cancer-in remission. 7. Former tobacco use-encouraged continued cessation. Physical Exam Const alert and oriented x3 HEENT normocephalic and moist oral mucous membranes Eyes PERRL, EOMs intact bilaterally and conjunctivae normal Neck no lymphadenopathy Resp normal respiratory effort and clear to auscultation bilaterally Cardio regular rhythm and no murmurs Cardio Narrative: Sinus marisela, BBB Peripheral Pulses: pulses 2+ throughout GI normal to inspection, nondistended, normoactive bowel sounds, non-tender and non-distended Extremity normal to inspection Skin no rashes or lesions noted Lesions: no lesions Rashes: no rashes Trauma: no lacerations or abrasions Neuro CN's II-XII intact bilaterally, no focal motor deficits, no sensory deficits noted and deep tendon reflexes 2+ bilaterally Psych mental status grossly normal and affect normal Patient seen and examined prior to discharge. Physical assessment as noted above. Patient is stable for discharge with follow up recommendations as noted above. This patient was seen by NATHANAEL Us under the supervision of Dr. Carmona. Weight / BMI Weight Weight: 177 lb 7.554 oz Body Mass Index (BMI) 27.1 ABG / Lab / Microbiology Data Result Diagrams: 12/17/21 06:05 12/17/21 06:05 Laboratory: Laboratory Results - last 24 hr 12/17/21 06:05: WBC 8.5, RBC 4.11 L, Hgb 12.7 L, Hct 36.8 L, MCV 89.5, MCH 30.9, MCHC 34.5, RDW Std Deviation 41.6, RDW Coeff of Leanne 12.6, Plt Count 283, MPV 9.6, Immature Gran % (Auto) 0.200, Neut % (Auto) 58.7, Lymph % (Auto) 27.2, Hickman % (Auto) 10.2 H, Eos % (Auto) 3.0, Baso % (Auto) 0.7, Absolute Neuts (auto) 5.0, Absolute Lymphs (auto) 2.30, Nucleated RBC % 0 12/17/21 06:05: Sodium 136, Potassium 4.0, Chloride 100, Carbon Dioxide 29.0, Anion Gap 7, BUN 15, Creatinine 0.92, Estim Creat Clear Calc 58.86, Est GFR (MDRD) Af Amer 101, Est GFR (MDRD) Non-Af 84, BUN/Creatinine Ratio 16.3, Glucose 98, Calcium 9.0 Radiography Diagnostic Testing: Radiology Impression Echocardiogram 12/16/21 11:01 Interpretation Summary Normal LV size. Left ventricular systolic function is normal. The estimated ejection fraction is 60 %. Pulmonary artery systolic pressure is 28 mmHg. Ordering Physician: Jessica Celaya Referring Physician: Lawrence Lea Performed By: Karen Eckert RDCS, RVT D/C Instructions Discharge Diet: Low fat / Low cholesterol Additional Activity Instructions: Follow-up post cath instructions Call your doctor if your incision/area has: Continuous Slow Oozing, Sudden Increased Bleeding, Increased Pain/ Swelling, Increased Redness, Foul Smelling Discharge and Swelling at the incision site Call your doctor if you observe: Shortness of breath, Dizziness and Chest pain Meaningful Use Info Meaningful Use Diagnoses (Choose all that apply): AMI AMI/Post PCI/Angioplasty Aspirin given w/in 24hrs of arrival?: Yes ASA at discharge?: Yes Statins at discharge?: Yes Cam/ARB at discharge?: Yes Beta Jj at discharge?: Yes Done w/ Acute WI measure.: Yes Discharge Plan Admission Admit Date/Time: 12/15/21 19:55 Primary Reason for Your Visit: NSTEMI, a.fib Attending Provider: Xiomara Carmona Primary Care Provider: Lawrence Lea Consulting Providers: Ortiz Harrison ; Jessica Celaya Discharge Orders/Prescriptions Prescriptions: New amiodarone 200 mg Tablet 200 mg PO DAILY 30 Days Qty: 30 0RF metoprolol succinate 50 mg Tablet Extended Release 24 Hr 50 mg PO DAILY 30 Days Qty: 30 0RF Eliquis 5 mg Tablet 5 mg PO BID Qty: 60 0RF Continued multivitamin,ad-vzll-xibvpuwu tablet tablet 1 tab PO QDAY magnesium oxide 400 mg magnesium tablet 400 mg PO DAILY atorvastatin 10 MG tablet 10 mg PO QHS Label Comments: CHOLESTEROL aspirin 81 MG tablet,chewable 81 mg PO DAILY@0800 Label Comments: BLOOD THINNER amlodipine 10 mg tablet 10 mg PO DAILY Qty: 90 3RF hydrochlorothiazide 25 mg tablet 25 mg PO DAILY Qty: 90 3RF losartan [Cozaar] 100 mg tablet 100 mg PO QDAY Qty: 90 4RF Discontinued metoprolol succinate [Toprol XL] 100 mg tablet extended release 24 hr 100 mg PO DAILY Qty: 90 3RF Referrals / Follow Up: Rodrick Jay MD [Med Staff - Active Staff] - Within 1 Month Lawrence Lea MD [Primary Care Provider] - In 1 Week Disposition Disposition (needs filled in before D/C Order can be placed): Home, Self Care Documented by User: Dr. Xiomara Carmona DO 12/17/21 10:04 Providers Date of Admission: 12/15/21 Reason For Visit: NSTEMI, PAF WITH RVR Diagnosis Discharge Diagnosis (1) NSTEMI, initial episode of care: Status: Acute Code(s): I21.4 - Non-ST elevation (NSTEMI) myocardial infarction (2) Atrial fibrillation with RVR: Status: Acute Code(s): I48.91 - Unspecified atrial fibrillation (3) Essential (primary) hypertension: Status: Chronic Code(s): I10 - Essential (primary) hypertension Medications at Discharge Home Medications aspirin 81 mg chewable tablet 81 mg PO DAILY@0800 HEART HEALTH 06/17/13 atorvastatin 10 mg tablet 10 mg PO QHS CHOLESTEROL 06/17/13 multivitamin,yj-tfvi-tuutpjdq (Complete Multivitamin tablet) 1 tab PO QDAY VITAMIN 05/10/17 magnesium oxide 400 mg PO DAILY SUPPLEMENT 09/10/19 amlodipine 10 mg tablet 10 mg PO DAILY #90 tabs 08/06/21 hydrochlorothiazide 25 mg tablet 25 mg PO DAILY #90 tabs 08/06/21 losartan 100 mg tablet (Cozaar) 100 mg PO QDAY #90 tabs 10/08/21 amiodarone 200 mg tablet 200 mg PO DAILY 30 days #30 tabs 12/17/21 apixaban 5 mg tablet (Eliquis) 5 mg PO BID #60 tabs 12/17/21 metoprolol succinate 50 mg tablet,extended release 24 hr 50 mg PO DAILY 30 days #30 tabs 12/17/21 Hospital Course Summary of Care Provided Minutes Spent on Discharge: 37 Hospital Course: This patient was seen in conjunction with Sweta John NP. The following represents my independent history and physical examination. Please see below for addendum the above. Mr. Steve is an 81-year-old white male who presented to the emergency department was [facility] on 12/15/2021 with chest pain, lightheadedness, and dyspnea. The patient reported that his symptoms started at approximately 5 AM on the day of presentation to the emergency department. He noted it upon wakening that morning and described the pain as pressure with radiation to his left shoulder. He noted that it was similar to previous episodes he had when he developed atrial fibrillation with RVR. He noted at admission he had been feeling well and at his baseline the day prior to presentation. Work-up in the ED included T97.6, heart rate initially 143 with improvement 80, BP 115/78 decreasing following medication administration to 81/53 with improvement with most recent BP 114/74, respiratory rate 18, 97% on room air, CBC with WC 11.8, hemoglobin 13.3, platelet 336 with left shift, unremarkable coags, D-dimer normal, BMP with sodium 133, chloride 96, glucose 147, BNP 586.2, TSH 1.65, initial troponin 46 with repeat delta 178, EKG with atrial fibrillation with RVR with ST depressions in lateral leads with no corresponding elevations.? In the ED patient ministered normal saline bolus, aspirin full-strength and diltiazem 10 mg IV bolus x1 as well as lopressor 5 mg IV x 1. Discussed case with ED physician and will have patient placed on heparin drip as well as administration of his home 50 mg metoprolol. The case was discussed with the on-call cardiology technologist, Dr. Harrison, who agreed with admission and the above plan. He was admitted the PCU and was evaluated by cardiology on 12/16/2021 his cardiac enzymes were cycled and noted to be elevated and he was therefore taken to the cardiac catheterization lab on 12/16/2021 at which time he was found to have nonobstructive coronary disease. Recommendations were ongoing medical therapy. An echocardiogram was performed and showed an EF of 60% with normal LV function and pulmonary artery systolic pressure of 28 mmHg. No valvular abnormalities were identified. Given his normal coronaries he was diagnosed with an NSTEMI type II. With regards to his A. fib with RVR medication changes were made in the initiation of amiodarone 200 mg daily, decreasing his metoprolol from 100 mg to 50 mg daily and adding apixaban 5 mg p.o. twice daily. His heart rates reverted back into normal sinus rhythm and he remained in normal sinus rhythm for 24 hours after his cardiac catheterization. He was discharged home with new prescriptions for the above medications and instructed to follow-up with cardiology in 4 weeks. Discharge diagnoses: NSTEMI type II PAF with RVR Hypokalemia-resolved Hypertension Hyperlipidemia History of prostate cancer-remission Nonobstructive CAD History of tobacco abuse Physical Exam Narrative Patient states he is feeling well and anxious to go home. Has already dressed in street clothes Const alert, oriented x3, no apparent distress, healthy appearing and well nourished Constitutional Narrative: Elderly white male who appears younger than stated age, on his room fully clothed in street clothes, patient appears comfortable, nontoxic General Appearance: cooperative, comfortable, well kempt and well developed Orientation / Consciousness: awake Exam Limitations: no limitations Nutritional Appearance: overweight HEENT normocephalic, head/scalp atraumatic and moist oral mucous membranes HEENT Narrative: Mild hearing loss Eyes PERRL, EOMs intact bilaterally and conjunctivae normal Eyes Narrative: no Scleral icterus Neck no lymphadenopathy and supple Neck Narrative: Trachea midline, no thyroid enlargement Resp normal respiratory effort, no retractions, no use of accessory muscles and clear to auscultation bilaterally Auscultation: Negative for crackles, rales, rhonchi or wheezes Cardio regular rhythm, S1 normal heart sound, S2 normal heart sound, no murmurs, no rub , no gallops, no clicks and no JVD Cardio Narrative: Sinus bradycardia Peripheral Pulses: pulses 2+ throughout GI normal to inspection, nondistended, normoactive bowel sounds, soft to palpation and non-tender; Negative for hepatosplenomegaly Extremity no clubbing, cyanosis or edema Extremity Narrative: 2+ pedal pulses Skin no rashes or lesions noted, no wounds, skin turgor normal and no jaundice Neuro oriented x3, CN's II-XII intact bilaterally, moves all extremities and no focal motor deficits Neuro Narrative: Normal gait Speech: speech normal Psych mental status grossly normal and affect normal Psych Narrative: Very pleasant and appropriately interactive ABG / Lab / Microbiology Data Result Diagrams: 12/17/21 06:05 12/17/21 06:05 Discharge Plan Admission Admit Date/Time: 12/15/21 19:55 Primary Reason for Your Visit: NSTEMI, a.fib Attending Provider: Xiomara Carmona Primary Care Provider: Lawrence Lea Consulting Providers: Ortiz Harrison ; Jessica Celaya Discharge Orders/Prescriptions Prescriptions: New amiodarone 200 mg Tablet 200 mg PO DAILY 30 Days Qty: 30 0RF metoprolol succinate 50 mg Tablet Extended Release 24 Hr 50 mg PO DAILY 30 Days Qty: 30 0RF Eliquis 5 mg Tablet 5 mg PO BID Qty: 60 0RF Continued multivitamin,op-zcup-wkonyshu tablet tablet 1 tab PO QDAY magnesium oxide 400 mg magnesium tablet 400 mg PO DAILY atorvastatin 10 MG tablet 10 mg PO QHS Label Comments: CHOLESTEROL aspirin 81 MG tablet,chewable 81 mg PO DAILY@0800 Label Comments: BLOOD THINNER amlodipine 10 mg tablet 10 mg PO DAILY Qty: 90 3RF hydrochlorothiazide 25 mg tablet 25 mg PO DAILY Qty: 90 3RF losartan [Cozaar] 100 mg tablet 100 mg PO QDAY Qty: 90 4RF Discontinued metoprolol succinate [Toprol XL] 100 mg tablet extended release 24 hr 100 mg PO DAILY Qty: 90 3RF Referrals / Follow Up: Rodrick Jay MD [Med Staff - Active Staff] - Within 1 Month Lawrence Lea MD [Primary Care Provider] - In 1 Week Disposition Disposition (needs filled in before D/C Order can be placed): Home, Self Care Charges/Coding Visit Charges Inpatient E&M: 05140 Disch Hosp
--- NOTE | 2021-12-17 09:58 | CASEMGMT ---
Pt to be sent home on Eliquis and med e-scribed to pharmacy. Call to pharmacy and per tech, pt's co-pay is $47. This RN CM to room to update pt and provide Eliquis 30 day free trial card, voices understanding. Pt voices no further questions/concerns/needs for discharge. SStaten RN CM
--- NOTE | 2021-12-17 13:57 | PHA.DC.MR ---
Pharmacy Service has performed discharge medication reconciliation for this patient. Discharge materials were prepared; however pt left prior to discharge counselling being performed. Home Medications aspirin 81 mg chewable tablet 81 mg PO DAILY@0800 HEART HEALTH 06/17/13 atorvastatin 10 mg tablet 10 mg PO QHS CHOLESTEROL 06/17/13 multivitamin,ne-lace-tiqfuckn (Complete Multivitamin tablet) 1 tab PO QDAY VITAMIN 05/10/17 magnesium oxide 400 mg PO DAILY SUPPLEMENT 09/10/19 amlodipine 10 mg tablet 10 mg PO DAILY #90 tabs 08/06/21 hydrochlorothiazide 25 mg tablet 25 mg PO DAILY #90 tabs 08/06/21 losartan 100 mg tablet (Cozaar) 100 mg PO QDAY #90 tabs 10/08/21 amiodarone 200 mg tablet 200 mg PO DAILY 30 days #30 tabs 12/17/21 apixaban 5 mg tablet (Eliquis) 5 mg PO BID #60 tabs 12/17/21 metoprolol succinate 50 mg tablet,extended release 24 hr 50 mg PO DAILY 30 days #30 tabs 12/17/21 The patient's discharge medication list was reviewed for discrepancies and discrepancies were resolved.
== END 2021-12-17 10:22 | disposition home or self-care (01) | DRG 282 ==
LOC: ED 16:00 → PCU 20:13
PROVIDERS: Nurse Practitioner Family; Admitting Provider Family Medicine; Emergency Provider Emergency Medicine; PCP Family Medicine; Visit Provider Internal Medicine
DX: I48.0 Paroxysmal atrial fibrillation (principal); I21.A1 Myocardial infarction type 2; I95.9 Hypotension, unspecified; I10 Essential (primary) hypertension; E78.00 Pure hypercholesterolemia, unspecified; E87.6 Hypokalemia; I25.10 Atherosclerotic heart disease of native coronary artery without angina pectoris; R00.1 Bradycardia, unspecified; Z79.82 Long term (current) use of aspirin; Z79.01 Long term (current) use of anticoagulants; Z79.899 Other long term (current) drug therapy; Z87.891 Personal history of nicotine dependence; Z85.46 Personal history of malignant neoplasm of prostate
CPT/HCPCS: 36415; 71045; 80048; 80053; 80061; 83735; 83880; 84443; 84484; 85025; 85379; 85610; 85730; 93005; 93306; 93458; 99152; 99153; 99285; J7030; J7040; Q9967; A4216; C1769; C1894

== ENCOUNTER → 2022-08-08 | Outpatient (CLI) | payer MEDICARE, SELFPAY ==
--- NOTE | 2022-08-08 09:48 | RAD_ITS ---
INDICATION: cough EXAMINATION/TECHNIQUE: X-RAY - XR Chest 2 Views COMPARISON: FINDINGS: There are 2 nodular densities projecting at the left lung base on the frontal view but appear to be extrinsic to the patient on the lateral view. Correlation is advised. Remainder of lungs is clear. LINES/DEVICES: None. LUNGS: No consolidation, edema or effusion. No pneumothorax. MEDIASTINUM AND CARDIOVASCULAR STRUCTURES: Cardiac silhouette not enlarged. Central airways and mediastinal contour are unremarkable. BONES AND SOFT TISSUES: Unremarkable. RAD/Chest PA and Lateral IMPRESSION: Nodular densities likely extrinsic to the patient. See above discussion. Electronically Signed: Antonio James MD, JOÃO at 18:43 EDT ,
--- NOTE | 2022-08-08 09:48 | RAD_ITS ---
STUDY: X-RAY - PARANASAL SINUSES REASON FOR EXAM: Male, 82 years old. Postnasal drip. TECHNIQUE: 3 view(s) of the paranasal sinuses were obtained. COMPARISON: None. FINDINGS: Normal visualized frontal, maxillary, ethmoidal and sphenoid sinuses. Normal visualized facial bones. The soft tissue structures are unremarkable. RAD/Sinuses min 3 Views IMPRESSION: Normal x-rays of the paranasal sinuses. Electronically Signed: Nicholas Salmeron DO at 23:23 EDT ,
== END | disposition home or self-care (01) ==
LOC: MTRAD 09:47
PROVIDERS: PCP Family Medicine; Referring Provider Family Medicine; Visit Provider Family Medicine
DX: R05.9 Cough, unspecified (principal); J31.0 Chronic rhinitis
CPT/HCPCS: 70220; 71046

== ENCOUNTER → 2022-08-16 | Outpatient (CLI) | payer MEDICARE, SELFPAY ==
[2022-08-16 10:12] LABS: ALB/GLOB Ratio 0.9 RATIO (0.9-2.4); AST(SGOT) 21 U/L (15-37); Alanine Aminotransfer ALT/SGPT 28 U/L (16-61); Albumin, Serum 3.6 g/dL (3.2-5.0); Alkaline Phosphatase 68 U/L (45-117); Anion Gap 9 (5-15); BUN 20 mg/dL (7-18); BUN/Creat Ratio 19.2 RATIO (10-20); Bilirubin, Direct 0.16 mg/dL (0.00-0.30); Calcium,Total 8.5 mg/dL (8.5-10.1); Chloride 99 mmol/L (98-107); Cholesterol 95 mg/dL (200); Creatinine, Serum 1.04 mg/dL (0.70-1.30); EST Glomerular Filtration Rate 72 mL/min (>60); Est Glom Filt Rate - Afr Amer 88 mL/min (>60); Globulin 3.9 g/dL (2.2-4.2); Glucose 105 mg/dL (74-106); High Density Lipoprotein 55 mg/dL; Magnesium 2.4 mg/dL (1.6-2.6); PSA,Total- Diagnostic < 0.01 ng/mL (0.0-4.0); Potassium 3.5 mmol/L (3.5-5.1); Protein, Total 7.5 g/dL (6.4-8.2); Sodium Level 135 mmol/L (136-145); Thyroid Stim Hormone (TSH) 1.82 uIU/mL (0.358-3.74); Triglycerides 40 mg/dL; Very Low Density Lipoprotein 8 mg/dL (5-40)
[2022-08-16 10:22] LABS: T4 Free Direct 1.25 ng/dL (0.76-1.46)
== END | disposition home or self-care (01) ==
LOC: LAB 08:53
PROVIDERS: Nurse Practitioner Family; PCP Family Medicine; Visit Provider Family Medicine
DX: E78.00 Pure hypercholesterolemia, unspecified (principal); I48.0 Paroxysmal atrial fibrillation; C61 Malignant neoplasm of prostate; Z79.899 Other long term (current) drug therapy; I10 Essential (primary) hypertension
CPT/HCPCS: 36415; 80053; 80061; 82248; 83735; 84153; 84439; 84443

== ENCOUNTER 2022-10-11 08:54 | Day surgery (SDC) | payer MEDICARE, SELFPAY ==
--- NOTE | 2022-10-11 | IMM_PTH ---
PATIENT: MATILDA BROOKE LOC: EN U#:[id number] AGE/SX: 82/M ROOM: RE10/11/[address]: Dr. Doug Pittman MD : 1940 BED: DIS: 10/11/2022 SPEC #: [id number] RECD: 10/12/22 12:50 STATUS: PATRICIA REQ #: [id number] KRUPA: 10/11/22 00:[address]: Doug Pittman DEPT: IMMUNOHISTOCHEMISTRY RECD BY: Cathy Mireles ENTERED: 10/12/22 12:53 SP TYPE: IMMUNO OTHR DR: Dr. Lawrence Lea MD Tissues: B - Rectum, NOS Procedures: Synapto (add) SMA (add) CD31 (add) DESMIN (add) KI-67 (add) P53 (add) Vimentin (add) NEUROFIL (add) Pankeratin (initial) CD68 (ADD) NSE (add) S-100 (add) PHYSICIAN & [address] [address] SPECIMEN INFORMATION: Tissue Source: B - Rectum polyp Clinical Info: History of colonic polyps Specimen Number: [id number] CPT code: 60272, 34188 x11 METHODOLOGY: Deparaffinized sections of prefer/formalin-fixed tissue or PAP/DQ stained slides are incubated with monoclonal/polyclonal antibodies/oligonucleotide probes. Localization is made via biotin free immunoperoxidase method. Appropriate controls are performed and reacted as expected. Results on target cell population are indicated in the following table: RESULTS: ANTIBODY / CLONE RESULT Block B AE1-3 (AE1/AE3/PCK26) negative Vimentin (V9) positive CD31 (PAMELA/70A) negative CD68 (KP-1) negative Actin (1A4) negative Desmin (CE-R-11) negative S-100 (4C4.9) positive Neurofil (2F11) negative Synapto (polyclonal) positive NSE Neuron Specific Enolase negative P53 (DO-7) negative, null pattern Ki-67 (30-9) positive, 2% These tests were developed and their performance characteristics determined by [facility]. They may not have been cleared or approved by the U.S. Food and Drug Administration. The FDA has determined that such clearance or approval is not necessary. The above immunohistochemical/dualISH markers are ordered and reviewed by the Pathologist. INTERPRETATION: B. Rectum polyp, biopsy: Consistent with schwannoma. AM:dayanna 10/13/2022 Case has been reviewed in consultation with Dr. Wade who concurs with the above diagnosis. IDC:SJ
[2022-10-11] MEDS: Lactated Ringers 1,000 ML 15 ML IV (09:00)
[2022-10-11 09:23] VITALS: BP 152/62; PULSE 53; RESP 16; TEMP 37.1; O2SAT 98
--- NOTE | 2022-10-11 09:53 | HP.PCM_ITS ---
History and Physical Date of Admission: 10/11/22 Visit Reasons: COLONOSCOPY Chief Complaint: colonoscopy Allergies No Known Allergies Allergy (Verified 09/20/22 14:09) Medications atorvastatin 10 mg tablet 10 mg PO QHS CHOLESTEROL 06/17/13 [History Confirmed 09/20/22] multivitamin,[id number] (Complete Multivitamin tablet) 1 tab PO QDAY VITAMIN 05/10/17 [History Confirmed 09/20/22] magnesium oxide 400 mg PO DAILY SUPPLEMENT 09/10/19 [History Confirmed 09/20/22] losartan 100 mg tablet (Cozaar) 100 mg PO QDAY #90 tabs 10/08/21 [Rx Confirmed 09/20/22] amiodarone 200 mg tablet 200 mg PO DAILY 30 days #90 tabs 01/17/22 [Rx Confirmed 09/20/22] apixaban 5 mg tablet (Eliquis) 5 mg PO BID #180 tabs 01/17/22 [Rx Confirmed 09/20/22] metoprolol succinate 25 mg tablet,extended release 24 hr 25 mg PO DAILY #90 tabs 07/13/22 [Rx Confirmed 09/20/22] amlodipine 10 mg tablet 10 mg PO DAILY #90 tabs 09/05/22 [Rx Confirmed 09/20/22] hydrochlorothiazide 25 mg tablet 25 mg PO DAILY #90 tabs 09/05/22 [Rx Confirmed 09/20/22] FORMERLY [facility], [facility] Medical History Atrial fibrillation with RVR Benign neoplasm of rectum and anal canal Erectile dysfunction Essential (primary) hypertension Former tobacco use Hyperlipidemia NSTEMI, initial episode of care Paroxysmal atrial fibrillation Prostate cancer Surgical History History of colonoscopy with polypectomy History of left heart catheterization (07/2012) History of prostate surgery History of right inguinal hernia repair S/P excision of lipoma Family History Mother HypertensionFather CKD (chronic kidney disease) Prostate cancer Social History household members: spouse Smoking Status: Former smoker quit date: 03/27/94 pack-years: 20 how long ago did patient quit smoking: Quit 03/27/1994, smoked while in [place], 03/28 ppd x 20 years. alcohol intake: current alcohol intake frequency: a few times a week Alcohol type: wine details: Occasional. substance use type: does not use caffeine: No HPI HPI HPI: 82-year-old gentleman is being referred by Dr. Lawrence Lea for surgical consultation regarding colonoscopy. Written compromise surgical consult recommendations will return to him. The patient's had a previous history of a colonoscopy in 2013 and had a polypectomy at that time. He otherwise is enjoying current good health. It is of note that he does have atrial fibrillation and is treated with chronic anticoagulation in the form of apixaban 5 mg orally twice daily. The patient enjoys a very high quality of life. Very physically active. 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 No bright red blood per rectum or melena no abdominal pain. No family history of colon cancer. He does have atrial fibrillation but no history of myocardial infarction or stroke. ROS General General: No weight change, appetite, fatigue, colon cancer, breast cancer or weakness HEENT HEENT: No difficulty swallowing, eye injury, eye surgery, swollen glands or hoarseness Endo Endocrine: No thyroid disease, diabetes mellitus, thyroid cancer, Hair loss, heat intolerance or cold intolerance Skin Skin: No rash or changing moles Breast Breast: No left breast lump, right breast lump, nipple discharge, breast pain, abnormal mammogram, abnormal US or breast enlargement Musc Musculoskeletal: No back problems, arthritis, rheumatoid arthritis, gout or joint pain Cardio Cardiovascular: Yes atrial fibrillation and high blood pressure; No murmur, pacemaker, heart disease, heart attack, heart stent, palpitations, shortness of breat with exertion or chest pain Psych Psychiatric: No depression, anxiety or hearing voices Resp Respiratory: No shortness of breath, No sleep apnea, No cough, No COPD, No asthma, No emphysema and No wheezing Gastro Gastrointestinal: No abdominal pain, No nausea or vomiting, No diarrhea, No constipation, No blood in stool, No acid reflux, No hemorrhoids, No ulcers, No gallbladder problem and No black,tarry stools Dilip Hematologic: Yes blood thinners, No blood disorders, No bleeding, No anemia and No blood clots Neuro Neurologic: No system reviewed and no additional complaints, except as documented, No as per HPI, No abnormal gait, No abnormal hearing, No abnormal movements, No abnormal speech, No behavioral changes, No burning sensations, No confusion, No convulsions, No disequilibrium, No dizziness, No localized weakness, No frequent falls, No headache(s), No lack of coordination, No loss of vision, No memory loss, No numbness, No other visual disturbances, No radicular pain, No restless legs, No sensory deficit, No syncope, No tingling, No tremor(s), No weakness and No other Exam Const General: cooperative, healthy appearing and comfortable [facility] Head: normal to inspection Eyes General: appearance normal, both eyes and all related structures Neck Neck: normal visual inspection Chest Chest palpation & inspection: normal inspection of the chest Resp Effort & Inspection: normal respiratory effort Auscultation: clear to auscultation bilaterally Cardio Rate: regular rate Rhythm: regular rhythm GI Inspection: normal to inspection Palpation: soft and no hepatosplenomegaly Auscultation: normal bowel sounds Musc Cervical Spine: normal cervical lordosis Skin General: no rashes or lesions noted Neuro General: patient alert, patient awake and patient oriented x3 Extrem General: no calf tenderness Psych Appearance: grossly normal Assessment and Plan Assessment and Plan (1) Personal history of colonic polyps: Status: Acute Plan: I recommended the patient a colonoscopy with possible biopsy or polypectomy as indicated. He is aware of the technique, benefit, risk, alternatives. 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 Copy: Dr. Lawrence Pittman M.D., F.A.C.S I have examined the patient and the H&P has been reviewed. There are no clinical changes since date of exam. Doug Pittman M.D., F.A.C.S.
--- NOTE | 2022-10-11 10:00 | COLBX_PTH ---
PATIENT: MATILDA BROOKE LOC: EN U#:[id number] AGE/SX: 82/M ROOM: RE10/11/[address]: Dr. Doug Pittman MD : 1940 BED: DIS: 10/11/2022 SPEC #: [id number] RECD: 10/11/22 11:49 STATUS: PATRICIA LOPEZ #: [id number] KRUPA: 10/11/22 10:[address]: Doug Pittman DEPT: SURGICAL PATHOLOGY RECD BY: Rylee Cordero ENTERED: 10/11/22 12:20 SP TYPE: COLON BX OTHR DR: Dr. Lawrence Lea MD Tissues: A - Sigmoid colon biopsy B - Rectum, NOS Procedures: Surgery Specimen Level IV HEADER OPERATION: Colonoscopy (MAC) with biopsy PRE-OP DIAGNOSIS: History of colonic polyps TISSUE SUBMITTED: A - Mid sigmoid polyp biopsy, B - Rectum polyp biopsy MICROSCOPIC DIAGNOSIS A. Mid sigmoid colon polyp, biopsy: Fragments of colonic mucosa with hyperplastic change. B. Rectal polyp, biopsy: Consistent with mucosal schwannoma. See comment. AM:dayanna 10/12/2022 COMMENT B. Immunohistochemistry ([id number]) supports the above diagnosis. Case has been reviewed in consultation with Dr. Wade who concurs with the above diagnosis. IDC:TU MICROSCOPIC DESCRIPTION Slides are reviewed. GROSS DESCRIPTION A - Received in fixative is one container labeled with the patient's name and designated mid sigmoid polyp biopsy. The specimen consists of one irregular fragment of light [place] soft tissue that measures 0.5 x 0.5 x 0.1 cm. The specimen is totally submitted in one cassette. B - Received in fixative is one container labeled with the patient's name and designated rectum polyp biopsy. The specimen consists of one irregular fragment of light [place] soft tissue that measures 0.5 x 0.3 x 0.1 cm. The specimen is totally submitted in one cassette. / TU:dayanna 10/11/2022 TC:5 [facility]: [id number] x2
[2022-10-11 10:55] VITALS: BP 114/52; BP 152/62; PULSE 51; RESP 16; TEMP 36.6; O2SAT 96
--- NOTE | 2022-10-11 10:55 | OP.COLON_ITS ---
Patient Name: Aman Steve Procedure Date: 10/11/2022 10:26 AM Date of : 1940 Age: 82 Procedure: Colonoscopy Indications: Screening for colorectal malignant neoplasm Providers: Doug Pittman MD Referring MD: Lawrence Lea Medicines: See the Anesthesia note for documentation of the administered medications Patient Profile: Last Colonoscopy: 2012. Complications: No immediate complications. Procedure: Pre-Anesthesia Assessment: - Prior to the procedure, a History and Physical was performed, and patient medications and allergies were reviewed. The patient's tolerance of previous anesthesia was also reviewed. The risks and benefits of the procedure and the sedation options and risks were discussed with the patient. All questions were answered, and informed consent was obtained. Prior Anticoagulants: The patient has taken no previous anticoagulant or antiplatelet agents. ASA Grade Assessment: II - A patient with mild systemic disease. After reviewing the risks and benefits, the patient was deemed in satisfactory condition to undergo the procedure. After I obtained informed consent, the scope was passed under direct vision. Throughout the procedure, the patient's blood pressure, pulse, and oxygen saturations were monitored continuously. The Colonoscope was introduced through the anus and advanced to the cecum, identified by appendiceal orifice and ileocecal valve. The colonoscopy was performed without difficulty. The patient tolerated the procedure well. The quality of the bowel preparation was good. The ileocecal valve and the appendiceal orifice were photographed. Scope In: 10:35:37 AM Scope Withdrawal Time 0 hours 9 minutes 15 seconds Scope Out: 10:49:09 AM Total Procedure Duration Time 0 hours 13 minutes 32 seconds Findings: Hemorrhoids were found on perianal exam. Normal prostate A 4 mm polyp was found in the mid sigmoid colon. The polyp was sessile. The polyp was removed with a cold biopsy forceps. Resection and retrieval were complete. A 4 mm polyp was found in the rectum. The polyp was sessile. The polyp was removed with a cold biopsy forceps. Resection and retrieval were complete. The exam was otherwise without abnormality. Impression: - Hemorrhoids found on perianal exam. - One 4 mm polyp in the mid sigmoid colon, removed with a cold biopsy forceps. Resected and retrieved. - One 4 mm polyp in the rectum, removed with a cold biopsy forceps. Resected and retrieved. - The examination was otherwise normal. Recommendation: - Discharge patient to home. - Resume previous diet. - Continue present medications. - Repeat colonoscopy in 5 years for surveillance based on pathology results. - Telephone my office for pathology results in 1 week. Procedure Code(s): --- Professional --- 62161, Colonoscopy, flexible; with biopsy, single or multiple Diagnosis Code(s): --- Professional --- Z12.11, Encounter for screening for malignant neoplasm of colon K64.9, Unspecified hemorrhoids D12.5, Benign neoplasm of sigmoid colon K62.1, Rectal polyp CPT copyright 2017 [employer]. All rights reserved. The codes documented in this report are preliminary and upon densitometer reader review may be revised to meet current compliance requirements. Doug Pittman MD 10/11/2022 10:54:51 AM This report has been signed electronically. Number of Addenda: 0 Note Initiated On: 10/11/2022 10:26 AM
--- NOTE | 2022-10-11 10:56 | OP.CCLET_ITS ---
10/11/2022 Lawrence Lea [address] [place] [address] Re : Colonoscopy procedure for Aman Steve Dear Dr. Lea This procedure was performed on Tuesday, October 11, 2022. My impressions and recommendations are as follows: Impressions : - Hemorrhoids found on perianal exam. - One 4 mm polyp in the mid sigmoid colon, removed with a cold biopsy forceps. Resected and retrieved. - One 4 mm polyp in the rectum, removed with a cold biopsy forceps. Resected and retrieved. - The examination was otherwise normal. Recommendations : - Discharge patient to home. - Resume previous diet. - Continue present medications. - Repeat colonoscopy in 5 years for surveillance based on pathology results. - Telephone my office for pathology results in 1 week. My findings are described in the full procedure note, which is enclosed. If I can be of further assistance, please feel free to contact me at Doctor phone number(s): Work: . Sincerely, Doug Pittman MD 10/11/2022 10:54:51 AM This report has been signed electronically.
[2022-10-11 11:00] VITALS: BP 111/68; BP 152/62; PULSE 52; RESP 16; O2SAT 98
[2022-10-11 11:05] VITALS: BP 118/63; BP 152/62; PULSE 46; RESP 16; O2SAT 93
[2022-10-11 11:12] VITALS: BP 138/54; BP 152/62; PULSE 50; RESP 16; TEMP 36.3; O2SAT 98
[2022-10-11 11:29] VITALS: BP 152/62
== END 2022-10-11 11:31 | disposition home or self-care (01) ==
LOC: EN 08:56 → AC 08:57
PROVIDERS: PCP Family Medicine; Referring Provider Family Medicine; Visit Provider Surgery
PROC: 0DJD8ZZ Inspection of Lower Intestinal Tract, Via Natural or Artificial Opening Endoscopic (ICD-10-PCS; CPT 45378; principal; 2022-10-11 09:55)
DX: Z12.11 Encounter for screening for malignant neoplasm of colon (principal); I48.0 Paroxysmal atrial fibrillation; K63.5 Polyp of colon; E78.5 Hyperlipidemia, unspecified; Z87.891 Personal history of nicotine dependence; Z86.010 Personal history of colon polyps; I10 Essential (primary) hypertension; Z79.01 Long term (current) use of anticoagulants; K62.1 Rectal polyp; K64.9 Unspecified hemorrhoids; Z79.899 Other long term (current) drug therapy
CPT/HCPCS: 45380; 88305; 88341; 88342; J7120; J2405

== ENCOUNTER → 2022-10-18 | Outpatient (CLI) | payer MEDICARE, SELFPAY ==
[2022-10-18 08:21] LABS: Cholesterol 160 mg/dL (200); High Density Lipoprotein 57 mg/dL; Triglycerides 110 mg/dL; Very Low Density Lipoprotein 22 mg/dL (5-40)
== END | disposition home or self-care (01) ==
LOC: LAB 07:10
PROVIDERS: PCP Family Medicine; Referring Provider Family Medicine; Visit Provider Family Medicine
DX: I10 Essential (primary) hypertension (principal)
CPT/HCPCS: 36415; 80061

== ENCOUNTER → 2023-03-28 | Outpatient (CLI) | payer MEDICARE, SELFPAY ==
[2023-03-28 11:23] LABS: Absolute Lymphocyte Count 2.48 X10^3/uL (0.83-4.51); Basophil# 0.08 X10^3/uL; Basophil% 0.8 % (0-1); Eosinophil# 0.16 X10^3/uL; Eosinophils% 1.7 % (0-5); Hematocrit 43.6 % (40-54); Hemoglobin 14.2 g/dL (13.0-16.5); Lymphocyte # 2.48 X10^3/ul (0.83-4.51); Lymphocyte % 25.9 % (19-41); Mean Corp Hgb Conc 32.6 g/dL (32-36); Mean Corpuscular Hgb 30.1 pg (27.0-32.0); Mean Corpuscular Volume 92.4 fL (80-94); Mean Platelet Vol. 9.1 fl (6.2-12.0); Monocyte# 0.84 X10^3/uL; Monocyte% 8.8 % (0-10); NRBC Flagged by Analyzer 0 % (0-5); Neutrophil # 5.96 X10^3/uL (2.7-7.7); Neutrophil % 62.3 % (47-70); Platelet Count 348 K/mm3 (150-450); RBC Distribution Width CV 13.1 % (11.6-14.6); RBC Distribution Width SD 44.3 fl (35.1-43.9); Red Blood Count 4.72 M/mm3 (4.6-6.2); White Blood Count 9.6 K/mm3 (4.4-11.0)
[2023-03-28 11:54] LABS: Anion Gap 6 (5-15); BUN 18 mg/dL (7-18); BUN/Creat Ratio 14.9 RATIO (10-20); Calcium,Total 8.9 mg/dL (8.5-10.1); Chloride 101 mmol/L (98-107); Creatinine, Serum 1.21 mg/dL (0.70-1.30); EST Glomerular Filtration Rate 61 mL/min (>60); Est Glom Filt Rate - Afr Amer 73 mL/min (>60); Glucose 105 mg/dL (74-106); Sodium Level 137 mmol/L (136-145)
[2023-03-28 13:19] LABS: Microalbumin,Random Urine 22.5 mg/L (NO RANGE EST.); Microalbumin:Creatinine Ratio 16.9 mg/g CRE (<30 mg/g CRE)
== END | disposition home or self-care (01) ==
LOC: LAB 11:01
PROVIDERS: PCP Family Medicine; Referring Provider Family Medicine; Visit Provider Family Medicine
DX: I10 Essential (primary) hypertension (principal); I48.91 Unspecified atrial fibrillation
CPT/HCPCS: 36415; 80048; 82043; 82570; 85025

== ENCOUNTER → 2023-09-26 | Outpatient (CLI) | payer MEDICARE, SELFPAY ==
[2023-09-26 13:52] LABS: Absolute Lymphocyte Count 2.23 X10^3/uL (0.83-4.51); Absolute Neutrophil Count 5.5 X10^3/uL (2.0-7.7); Basophil# 0.07 X10^3/uL; Basophil% 0.8 % (0-1); Eosinophil# 0.09 X10^3/uL; Hematocrit 39.8 % (40-54); Hemoglobin 13.1 g/dL (13.0-16.5); Lymphocyte # 2.23 X10^3/ul (0.83-4.51); Lymphocyte % 25.4 % (19-41); Mean Corp Hgb Conc 32.9 g/dL (32-36); Mean Corpuscular Hgb 30.1 pg (27.0-32.0); Mean Corpuscular Volume 91.5 fL (80-94); Mean Platelet Vol. 9.7 fl (6.2-12.0); Monocyte# 0.88 X10^3/uL; NRBC Flagged by Analyzer 0 % (0-5); Neutrophil # 5.47 X10^3/uL (2.7-7.7); Neutrophil % 62.5 % (47-70); Platelet Count 331 K/mm3 (150-450); RBC Distribution Width CV 13.1 % (11.6-14.6); Red Blood Count 4.35 M/mm3 (4.6-6.2); White Blood Count 8.8 K/mm3 (4.4-11.0)
[2023-09-26 14:25] LABS: AST(SGOT) 21 U/L (15-37); Alanine Aminotransfer ALT/SGPT 29 U/L (16-61); Albumin, Serum 3.8 g/dL (3.2-5.0); Alkaline Phosphatase 66 U/L (45-117); Anion Gap 8 (5-15); BUN 22 mg/dL (7-18); BUN/Creat Ratio 18.3 RATIO (10-20); Bilirubin, Direct 0.34 mg/dL (0.00-0.30); Chloride 97 mmol/L (98-107); EST Glomerular Filtration Rate 61 mL/min (>60); Est Glom Filt Rate - Afr Amer 74 mL/min (>60); Globulin 4.2 g/dL (2.2-4.2); Glucose 110 mg/dL (74-106); Magnesium 2.1 mg/dL (1.6-2.6); Potassium 3.6 mmol/L (3.5-5.1); Sodium Level 134 mmol/L (136-145); T4 Free Direct 1.27 ng/dL (0.76-1.46); Thyroid Stim Hormone (TSH) 1.06 uIU/mL (0.358-3.74)
== END | disposition home or self-care (01) ==
PROVIDERS: PCP Family Medicine; Referring Provider Nurse Practitioner Family; Visit Provider Nurse Practitioner Family
DX: Z79.899 Other long term (current) drug therapy (principal); I48.0 Paroxysmal atrial fibrillation; Z79.01 Long term (current) use of anticoagulants
CPT/HCPCS: 36415; 80048; 80076; 83735; 84439; 84443; 85025

== ENCOUNTER → 2024-10-21 | Outpatient (CLI) | payer MEDICARE, SELFPAY ==
[2024-10-21 13:26] LABS: Anion Gap 11 (5-15); BUN 17 mg/dL (4-19); BUN/Creat Ratio 16.5 RATIO (10-20); Calcium,Total 9.0 mg/dL (7.6-11.0); Carbon Dioxide 26.5 mmol/L (21.0-32.0); Chloride 99 mmol/L (98-108); Glucose 92 mg/dL (70-99); Potassium 3.9 mmol/L (3.3-5.1)
[2024-10-21 13:30] LABS: Creatinine, Urine (random) 170.00 mg/dL (39.00-259.00); Microalbumin,Random Urine 20.4 mg/L (<20 mg/L)
== END | disposition home or self-care (01) ==
LOC: MFPLAB 09:41
PROVIDERS: PCP Family Medicine; Referring Provider Family Medicine; Visit Provider Family Medicine
DX: I10 Essential (primary) hypertension (principal)
CPT/HCPCS: 36415; 80048; 82043; 82570

== ENCOUNTER → 2025-01-27 | Outpatient (CLI) | payer MEDICARE, SELFPAY ==
--- NOTE | 2025-01-27 08:10 | RAD_ITS ---
PROCEDURE: RAD/Chest PA and Lateral
[2025-01-27 09:59] LABS: Hematocrit 38.6 % (40-54); Hemoglobin 13.1 g/dL (13.0-16.5); Mean Corp Hgb Conc 33.9 g/dL (32-36); Mean Corpuscular Volume 91.7 fL (80-94); Mean Platelet Vol. 9.1 fl (6.2-12.0); Platelet Count 376 K/mm3 (150-450); RBC Distribution Width CV 13.2 % (11.6-14.6); RBC Distribution Width SD 44.3 fl (35.1-43.9); Red Blood Count 4.21 M/mm3 (4.6-6.2); White Blood Count 8.7 K/mm3 (4.4-11.0)
[2025-01-27 10:28] LABS: AST(SGOT) 27 U/L (<=37); Alanine Aminotransfer ALT/SGPT 24 U/L (<=46); Albumin, Serum 4.2 g/dL (3.4-4.8); Alkaline Phosphatase 81 U/L (40-129); Anion Gap 9 (5-15); BUN 21 mg/dL (4-19); BUN/Creat Ratio 20.3 RATIO (10-20); Calcium,Total 9.1 mg/dL (7.6-11.0); Carbon Dioxide 26.8 mmol/L (21.0-32.0); Chloride 99 mmol/L (98-108); Globulin 3.0 g/dL (2.2-4.2); Glucose 100 mg/dL (70-99); Potassium 4.4 mmol/L (3.3-5.1); Pro- Brain NATRIURETIC PEPTIDE 137 pg/mL (<=1800); Troponin T High Sensitivity 18 ng/L (<=22)
== END | disposition home or self-care (01) ==
LOC: MTLAB 08:09
PROVIDERS: PCP Family Medicine; Referring Provider Family Medicine; Visit Provider Family Medicine
DX: R07.89 Other chest pain (principal)
CPT/HCPCS: 36415; 71046; 80053; 83880; 84484; 85027; 85652